=== PATIENT | male | born 1945 | race Caucasian/White ===

== ENCOUNTER 2019-10-03 08:19 | Outpatient (CLI) | payer MEDICARE, SELFPAY ==
--- NOTE | ~2019-10-03 | CT_ITS ---
EXAMINATION: CT abdomen pelvis w con DATE: 10/03/2019 09:06 INDICATION: Left lower quadrant abdominal pain TECHNIQUE: Computed tomography (CT) of the abdomen and pelvis was performed with 100 cc Omnipaque 350 intravenous contrast. Automated exposure control and iterative reconstruction technique were employe d. Exam dose: 1413.28 mGy-cm total exam DLP. COMPARISON: None. FINDINGS: There is mild dependent atelectasis at the lingula and lower lobes. Normal heart size. No pericardial or pleural effusion. Small sliding hiatal hernia The liver, gallbladder, bile ducts, spleen, pancreas, pancreatic duct and adrenal glands and kidneys are unremarkable. No urinary tract calculus or hydroureteronephrosis. There is calcification of the abdominal aorta particularly at the origins of the celiac and superior mesenteric and renal arteries. No abdominal aortic aneurysm. No intraperitoneal or retroperitoneal or pelvic mass lesion or adenopathy or ascites is detected. The urinary bladder is unremarkable. Normal appendix. There is minimal diverticulosis of the colon; no CT evidence of diverticulitis. No b owel obstruction or bowel wall thickening, pneumatosis or intraperitoneal free air. There is a fat-containing umbilical hernia. There are additional right parasagittal small fat-contain ing supraumbilical ventral abdominal wall hernias. There are moderate bilateral fat-containing inguinal hernias. There is osteopenia. There are degenerative changes of the thoracic and lumbar spine. No suspicious o steolytic or osteoblastic lesions are noted. IMPRESSION: Small sliding hiatal hernia Minimal diverticulosis of the colon; no CT evidence of diverticulitis Reviewed, dictated and finalized at [facility]. Reviewed, dictated and finalized at location B.
[2019-10-03 08:59] LABS: Estimated Glomerular Filt Rate > 60
== END 2019-10-03 08:20 | disposition home or self-care (01) ==
PROVIDERS: PCP Internal Medicine; Visit Provider Internal Medicine
DX: K44.9 Diaphragmatic hernia without obstruction or gangrene (principal); K57.30 Diverticulosis of large intestine without perforation or abscess without bleeding
CPT/HCPCS: 36415; 74177; Q9967

== ENCOUNTER 2020-06-25 06:23 | Inpatient (IN) | payer MEDICARE, SELFPAY ==
[2020-06-25] VITALS (59 sets, daily range): BP systolic 99–216; BP diastolic 56–92; PULSE 77–130; RESP 17–46; TEMP 36–37.3; O2SAT 56–100; BMI 34.2
--- NOTE | ~2020-06-25 | XR_ITS ---
EXAMINATION: XR chest 1V portable DATE: 06/26/2020 06:06 INDICATION: Respiratory failure TECHNIQUE: frontal view of the chest was obtained. COMPARISON: Chest radiograph dated 06/25/2020 FINDINGS: Endotracheal tube tip 10.0 cm above the john. Nasogastric tube extends below the left hemidiaphrag m with distal tip collimated off the study. No significant interval change in patchy airspace opacities in the bilateral mid and lower lung zones . No pleural effusion or pneumothorax. The cardiomediastinal silhouette is normal. IMPRESSION: 1. Endotracheal tube tip 10.0 cm above the john. Consider advancement by 7-8 cm. 2. Unchanged patchy bilateral lung disease which could represent pneumonia and/or pulmonary edema. Reviewed, dictated and finalized at location A. ECTRIC MACHINE OPERATOR IMPRESSION: 1. Endotracheal tube tip 10.0 cm above the john. Consider advancement by 7-8 cm. 2. Unchanged patchy bilateral lung disease which could represent pneumonia and/ or pulmonary edema.
--- NOTE | ~2020-06-25 | XR_ITS ---
EXAMINATION: XR chest ET placement DATE: 06/26/2020 09:51 INDICATION: Intubation. COVID-19 pneumonia. TECHNIQUE: A single frontal view of the chest was obtained. COMPARISON: Chest single view at 5:44 AM, chest CT 06/25/2020 FINDINGS: There are airspace opacities in the mid and lower lung zones. The lateral costophrenic angl es are excluded. No pleural effusion or pneumothorax. The heart size is normal. The endotracheal tube tip is 5.9 cm above the john. The nasogastric tube tip is beyond the inferior margin of the radiog raph, but at least to the stomach. IMPRESSION: 1. Stable airspace opacities in the mid and lower lung zones, consistent with pneumonia versus pulmon pepito edema. Reviewed, dictated and finalized at location B. TER GEOPHYSICAL IMPRESSION: 1. Stable airspace opacities in the mid and lower lung zones, consistent with p neumonia versus pulmonary edema.
--- NOTE | ~2020-06-25 | XR_ITS ---
EXAMINATION: XR chest-chest tube insert/pos DATE: 07/01/2020 12:53 INDICATION: Chest tube placement TECHNIQUE: frontal view of the chest was obtained. COMPARISON: Chest radiograph dated 07/01/2020 at 11:48 AM FINDINGS: Endotracheal tube tip 5.4 cm above the john. Nasogastric tube extends below the left hemidiaphragm with distal tip collimated off the study. Right upper extremity peripherally inserted central venous catheter (PICC) tip at the mid superior vena cava. Interval placement of bilateral chest tubes. The right chest tube extends from lateral to medial acro ss the right lung base with distal tip projecting over the thoracic spine just beyond the midline. Th e left chest tube also enters laterally near the costophrenic angle but extends superomedially with d istal tip projecting over the left infrahilar region. Both the left and right pneumothoraces have res olved. No pleural effusion. There are patchy airspace opacities in the right mid to lower and left lo wer lung zones. Heart size is normal. Pneumomediastinum and extensive subcutaneous emphysema at the b ilateral chest and neck. IMPRESSION: 1. Bilateral chest tube placement with resolution of prior bilateral pneumothoraces and reexpansion o f the lungs. 2. Patchy airspace opacities in the right mid and lower and left lower lung zones concerning for pneu monia. 3. Residual pneumomediastinum and extensive subcutaneous emphysema. Reviewed, dictated and finalized at location A. CTION MOLDING TECHNICIAN IMPRESSION: 1. Bilateral chest tube placement with resolution of prior bilateral pneumothor aces and reexpansion of the lungs. 2. Patchy airspace opacities in the right mid and lower and left lower lung zon es concerning for pneumonia. 3. Residual pneumomediastinum and extensive subcutaneous emphysema.
--- NOTE | ~2020-06-25 | XR_ITS ---
EXAMINATION: XR chest-chest tube insert/pos DATE: 07/01/2020 12:04 INDICATION: Chest tube placement TECHNIQUE: frontal view of the chest was obtained. COMPARISON: Chest radiograph dated 07/01/2020 FINDINGS: Endotracheal tube tip 5.7 cm above the john. Nasogastric tube extends below the left hemidiaphragm with distal tip collimated off the study. Interval attempted placement of a right chest tube which a ppears to extend cephalad into the right side of the neck remaining extrapleural. No significant change in a moderate sized right pneumothorax with depression of the right hemidiaphra gm and partial collapse of the right lung. Small left pneumothorax evident at the apex and at the lat eral left lower lung zone. Patchy airspace opacities at the left lower lung zone and in the collapsed right lung consistent with multifocal pneumonia. Heart size is normal and lung with the mediastinum remains midline. Pneumomediastinum and extensive chest wall emphysema extending into the base of the neck. IMPRESSION: 1. Right chest tube remains extrapleural extending into the base of the right neck. 2. Unchanged moderate-sized right and small left pneumothoraces. This and the extrapleural position o f the right chest tube were discussed with Dr. Lam at 12:05 p.m. 3. Persistent patchy airspace opacities in both lungs consistent with multifocal pneumonia. Reviewed, dictated and finalized at location A. UCTION STAFF WORKER IMPRESSION: 1. Right chest tube remains extrapleural extending into the base of the right n deshaun. 2. Unchanged moderate-sized right and small left pneumothoraces. This and the e xtrapleural position of the right chest tube were discussed with Dr. Lam at 1 2:05 p.m. 3. Persistent patchy airspace opacities in both lungs consistent with multifoca l pneumonia.
--- NOTE | ~2020-06-25 | XR_ITS ---
EXAMINATION: XR chest 1V portable INDICATION: Assess chest tube placement TECHNIQUE: Portable AP chest at 2102 hours COMPARISON: 1243 hours FINDINGS: The endotracheal tube ends approximately 5.1 cm above the john. The nasogastric tube is f ollowed as far as the stomach. Its tip is beyond the inferior margin of the radiograph. A right upper extremity PICC ends with its tip in the distal superior vena cava. Bilateral chest tubes are grossly unchanged in position. No definite persistent pneumothorax is identified. Again noted is widespread subcutaneous emphysema as well as pneumomediastinum. IMPRESSION: 1. No significant change since the most recent chest radiograph. Reviewed, dictated and finalized at location A. TRIC REPAIR SUPERVISOR
--- NOTE | ~2020-06-25 | CT_ITS ---
EXAMINATION: CT brain wo con DATE: 06/25/2020 09:15 INDICATION: Altered mental status. Respiratory distress. TECHNIQUE: Computed tomography (CT) of the head was performed without intravenous contrast. Sagittal and coronal reconstructions were performed. The mA was adjusted according to patient size. Iterative reconstruction technique was employed. The dose-length product was 681.00 mGy-cm. COMPARISON: head CT dated 08/02/2018 FINDINGS: No acute intracranial hemorrhage, acute infarction or abnormal extra axial fluid collection. Ventricl es are normal and symmetric. No mass/mass effect. Chronic left parietal bro hole. Changes of bilater al intraocular lens replacement. Mild mucosal thickening the bilateral ethmoid sinuses. Moderate muco eriberto thickening in the bilateral maxillary sinuses with layering fluid nearly opacifying the right max illary sinus. Mastoid air cells and middle ear cavities are clear. Intracranial calcified cerebral at herosclerosis is noted. IMPRESSION: 1. Normal brain. No acute intracranial process. 2. Layering fluid in the right maxillary sinus. Correlate clinically for acute sinusitis. Reviewed, dictated and finalized at location A. ER
--- NOTE | ~2020-06-25 | XR_ITS ---
EXAMINATION: XR chest 1V portable INDICATION: Advanced endotracheal tube TECHNIQUE: Portable AP chest at 1726 hours COMPARISON: 1653 hours FINDINGS: The endotracheal tube is minimally advanced now positioned 9.9 cm above the john. Diffuse lung disease persists without significant change. The nasogastric tube is followed as far as the sto mach. Its tip is beyond the inferior margin of the radiograph. IMPRESSION: 1. Minimal advancement of the endotracheal tube now ending with its tip 9.9 cm above the john. 2. Stable diffuse lung disease, consistent with pneumonia versus pulmonary edema. Reviewed, dictated and finalized at location A. SAFETY MANAGER IMPRESSION: 1. Minimal advancement of the endotracheal tube now ending with its tip 9.9 cm above the john. 2. Stable diffuse lung disease, consistent with pneumonia versus pulmonary alan a.
--- NOTE | ~2020-06-25 | CT_ITS ---
EXAMINATION: CT chest wo con DATE: 07/01/2020 15:57 INDICATION: Pneumothorax, shortness of breath TECHNIQUE: Computed tomography (CT) of the chest was performed without intravenous contrast. The dose -length product (DLP) was 1004.55 mGy-cm. Automated exposure control and iterative reconstruction sharita hnique were employed. COMPARISON: CT 06/25/2020 and chest radiographs from today FINDINGS: There are small bilateral pneumothoraces. Bilateral chest tubes have been placed. The left- sided chest tube appears to course through the lung parenchyma of the lingula. The right-sided chest tube courses along the anterior/inferior pleural space and with its tip medially. The previously desc ribed areas of crazy paving in all lung zones persist but have improved since the comparison examin ation. There is an ovoid/cylindrical shaped, apparently loculated fluid collection with air-fluid lev el involving much of the medial portion of the left pleural space. This appears to contain mildly hyp erdense fluid however evaluation is limited by the absence of intravenous contrast and streak artifac t from the arms. A right upper extremity PICC ends in the distal superior vena cava. The nasogastric tube is in the stomach. The endotracheal tube is in adequate position. The heart size is normal. Subt le sclerotic lesions are noted in the sternum. There is extensive subcutaneous emphysema throughout the thorax, worst in the right neck and left upp er chest wall. There is also extensive pneumomediastinum tracking into the bilateral ban. Extensive subcutaneous emphysema is present in the flanks as well as in the peritoneum of the upper abdomen. IMPRESSION: 1. Diffuse lung disease with improvement, consistent with pneumonia and/or pulmonary edema. 2. Small bilateral pneumothoraces with bilateral chest tubes. The left chest tube appears to traverse the lung parenchyma of the lingula. 3. Severe widespread subcutaneous emphysema of the thorax and visualized phalanx, pneumomediastinum, and pneumoperitoneum of unclear etiology given that the findings were present on chest radiograph rob or to chest tube insertion. 4. Loculated fluid collection of the medial left pleural space with possible mildly hyperdense internet sales associate al component, further evaluation limited by the absence of intravenous contrast and streak artifact. Five. Subtle sclerotic lesions of the sternum which could reflect metastatic disease given history of prostate cancer. Reviewed, dictated and finalized at location A. CREAM FREEZER ASSISTANT IMPRESSION: 1. Diffuse lung disease with improvement, consistent with pneumonia and/or pulm onary edema. 2. Small bilateral pneumothoraces with bilateral chest tubes. The left chest tu be appears to traverse the lung parenchyma of the lingula. 3. Severe widespread subcutaneous emphysema of the thorax and visualized phalan x, pneumomediastinum, and pneumoperitoneum of unclear etiology given that the f indings were present on chest radiograph prior to chest tube insertion. 4. Loculated fluid collection of the medial left pleural space with possible mi ldly hyperdense internal component, further evaluation limited by the absence o f intravenous contrast and streak artifact. Five. Subtle sclerotic lesions of t he sternum which could reflect metastatic disease given history of prostate can cer.
--- NOTE | ~2020-06-25 | XR_ITS ---
EXAMINATION: XR chest 1V portable DATE: 06/27/2020 06:23 INDICATION: Respiratory failure TECHNIQUE: frontal view of the chest was obtained. COMPARISON: Chest radiograph dated 06/26/2020 at 12:23 PM FINDINGS: Endotracheal tube tip 5.3 cm above the john. Right upper extremity peripherally inserted central ve nous catheter (PICC) tip at the superior vena cava. Nasogastric tube extends below the left hemidia phragm with distal tip collimated off the study. Increase in hazy airspace opacities throughout both lungs with increased indistinct interstitial isaiah slade. No pleural effusion or pneumothorax. Heart size is normal. IMPRESSION: 1. Worsening diffuse bilateral lung disease consistent with pulmonary edema and/or pneumonia Reviewed, dictated and finalized at location A. E FEEDER IMPRESSION: 1. Worsening diffuse bilateral lung disease consistent with pulmonary edema and /or pneumonia
--- NOTE | ~2020-06-25 | CT_ITS ---
EXAMINATION: CTA chest PE abdomen pel DATE: 06/25/2020 09:15 INDICATION: Respiratory distress. Altered mental status. TECHNIQUE: Computed tomography angiography (CTA) of the chest was performed with 100 mL Omnipaque-350 intravenous contrast timed to evaluate the pulmonary arteries. Coronal maximum intensity projection 3D-reconstructions were created by the technologist. Computed tomography (CT) of the abdomen and pelv is was performed with intravenous contrast. Automated exposure control and iterative reconstruction t echnique were employed. The dose-length product was 2444.25 mGy-cm. COMPARISON: CT abdomen and pelvis 10/03/2019 FINDINGS: CTA chest: There are extensive areas of crazy paving in all lobes. There are dependent airspace opaci ties with air bronchograms in the lower lobes. No pleural effusion. The heart size is normal. There a re coronary artery calcifications. No pericardial effusion. There are acute pulmonary emboli in right upper lobe, right middle lobe, right lower lobe, and lingula. The endotracheal tube tip is 9.2 cm ab ove the john. The nasogastric tube tip is in the stomach. There are bridging endplate osteophytes a t multiple levels in the spine, consistent with diffuse idiopathic skeletal hyperostosis (DISH). Ther e is mild chronic anterior wedging of multiple thoracic vertebral bodies. There is moderate thoracic spondylosis. CT abdomen and pelvis: The liver, gallbladder, spleen, pancreas, adrenal glands, and right kidneys ar e normal. There are bilateral inguinal hernias containing fat. There are no dilated loops of bowel. T he appendix is normal. There are umbilical and supraumbilical ventral hernias containing fat. There a re no pathologically enlarged lymph nodes. There is no free intraperitoneal fluid. There is moderate lumbar spondylosis. IMPRESSION: 1. Bilateral acute pulmonary emboli. I called this result to Dr. Farfan. 2. Severe diffuse lung disease, consistent with pneumonia versus pulmonary edema. 3. Endotracheal tube tip 9.2 cm above the john. Reviewed, dictated and finalized at location B. MASTER IMPRESSION: 1. Bilateral acute pulmonary emboli. I called this result to Dr. Farfan. 2. Severe diffuse lung disease, consistent with pneumonia versus pulmonary alan a. 3. Endotracheal tube tip 9.2 cm above the john.
--- NOTE | ~2020-06-25 | XR_ITS ---
EXAMINATION: XR chest 1V portable DATE: 07/02/2020 05:57 INDICATION: Respiratory failure. COVID-19 pneumonia. TECHNIQUE: A single frontal view of the chest was obtained. COMPARISON: Chest single view 07/01/2020, chest CT 07/01/2020 FINDINGS: There are airspace opacities in the lower lung zones, left worse than right. There is a sma ll left pleural effusion. No pneumothorax. Bilateral chest tubes are noted. The heart size is normal. The endotracheal tube tip is 4.9 cm above the john. A right upper extremity peripherally inserted central venous catheter (PICC) is seen with tip in the superior vena cava. The nasogastric tube tip i s beyond the inferior margin of the radiograph, but at least to the stomach. There is soft tissue gas in the bilateral chest wall and neck. IMPRESSION: 1. Worsened airspace opacities in the lower lung zones, consistent with pneumonia and atelectasis. 2. Worsened small left pleural effusion. Reviewed, dictated and finalized at location A. WARE TEST SPECIALIST IMPRESSION: 1. Worsened airspace opacities in the lower lung zones, consistent with pneumon ia and atelectasis. 2. Worsened small left pleural effusion.
--- NOTE | ~2020-06-25 | XR_ITS ---
EXAMINATION: XR chest ET placement DATE: 07/01/2020 12:00 INDICATION: Endotracheal tube placement TECHNIQUE: frontal view of the chest was obtained. COMPARISON: Chest radiograph dated 07/01/2020 FINDINGS: Endotracheal tube tip 6.5 cm above the john. Nasogastric tube extends below the left hemidiaphragm with distal tip collimated off the study. Moderate-sized right pneumothorax with partial collapse of the right lung. There is also a small left pneumothorax best appreciated at the medial and lateral lower lung zones. There is a deep right sulc us sign which can be seen with tension pneumothorax although there is no appreciable leftward shift o f the heart or mediastinum with the trachea remaining midline. Patchy airspace opacities in the left lower lung zone and in the partially collapsed right lung consistent with pneumonia. Pneumomediastinu m. Bilateral chest wall emphysema, left greater than right. Heart size is normal. IMPRESSION: 1. Bilateral pneumothoraces, moderate sized on the right with partial collapse of the right lung and small on the left. Could not exclude developing right tension pneumothorax. 2. Multifocal pneumonia. 3. Pneumomediastinum and extensive chest wall emphysema. Reviewed, dictated and finalized at location A. RSE ENGINEER IMPRESSION: 1. Bilateral pneumothoraces, moderate sized on the right with partial collapse of the right lung and small on the left. Could not exclude developing right ten myles pneumothorax. 2. Multifocal pneumonia. 3. Pneumomediastinum and extensive chest wall emphysema.
--- NOTE | ~2020-06-25 | XR_ITS ---
EXAMINATION: XR chest 1V portable DATE: 06/28/2020 07:06 INDICATION: Respiratory failure. COVID-19 pneumonia. TECHNIQUE: A single frontal view of the chest was obtained. COMPARISON: Chest single view 06/27/2020, chest CT 06/25/2020 FINDINGS: There are airspace and interstitial opacities in all lung zones bilaterally with relative s paring of left upper lung zone. No pleural effusion or pneumothorax. The heart size is normal. The en dotracheal tube tip is 5.6 cm above the john. The nasogastric tube tip is beyond the inferior nabila n of the radiograph, but at least to the stomach. A right upper extremity peripherally inserted centr al venous catheter (PICC) is seen with tip at the superior cavoatrial junction. IMPRESSION: 1. Stable diffuse lung disease, consistent with pulmonary edema versus pneumonia. Reviewed, dictated and finalized at location B. ITAL LABORATORY TECHNICIAN IMPRESSION: 1. Stable diffuse lung disease, consistent with pulmonary edema versus pneumoni a.
--- NOTE | ~2020-06-25 | XR_ITS ---
EXAMINATION: XR chest 1V portable DATE: 06/30/2020 07:02 INDICATION: Respiratory failure TECHNIQUE: frontal view of the chest was obtained. COMPARISON: Chest radiograph dated 06/29/2020 FINDINGS: Endotracheal tube tip 5.8 cm above the john. Nasogastric tube extends below the left hemidiaphragm with distal tip collimated off the study. Right upper extremity peripherally inserted central venous catheter (PICC) tip at the superior vena cava. Significant improvement in the airspace opacities previously diffuse throughout both lungs are now re latively mild at the left lung base and minimal at the right lung base. There is still a slightly inc reased diffuse interstitial pattern consistent with mild pulmonary edema. The cardiomediastinal silho uette is normal. IMPRESSION: 1. Improvement in bilateral opacities which given the relatively rapid change could've been due to pu lmonary edema or small posteriorly layering pleural effusions. 2. Mild residual pulmonary edema and mild bibasilar opacities which could represent atelectasis or pn eumonia. Reviewed, dictated and finalized at location A. PULLER IMPRESSION: 1. Improvement in bilateral opacities which given the relatively rapid change c ould've been due to pulmonary edema or small posteriorly layering pleural effus ions. 2. Mild residual pulmonary edema and mild bibasilar opacities which could repre sent atelectasis or pneumonia.
--- NOTE | ~2020-06-25 | XR_ITS ---
EXAMINATION: XR chest ET placement DATE: 06/25/2020 07:07 INDICATION: Endotracheal tube placement TECHNIQUE: frontal view of the chest was obtained. COMPARISON: Chest radiograph dated 02/25/2017 FINDINGS: Endotracheal tube tip 7.6 cm above the john. Nasogastric tube extends to at least the distal esoph alisha with the region of the gastroesophageal junction collimated off the study. Prominent bilateral patchy airspace opacities throughout the mid and lower lung zones. No pneumothora x or definitive pleural effusion. Heart size appears enlarged however was normal in size on most rece nt CT dated 10/03/2019 and this may be exaggerated by AP technique and surrounding lung disease. IMPRESSION: 1. Endotracheal tube tip 7.6 cm above the john. Consider advancement by 4-5 cm. 2. Diffuse bilateral lung disease which could represent severe pulmonary edema and/or pneumonia. 3. Possible cardiomegaly. Reviewed, dictated and finalized at location A. TH PROMOTION OFFICER IMPRESSION: 1. Endotracheal tube tip 7.6 cm above the john. Consider advancement by 4-5 c m. 2. Diffuse bilateral lung disease which could represent severe pulmonary edema and/or pneumonia. 3. Possible cardiomegaly.
--- NOTE | ~2020-06-25 | US_ITS ---
EXAMINATION: US venous doppler [facility] DATE: 06/25/2020 14:25 INDICATION: Pulmonary embolism TECHNIQUE: Grayscale ultrasound images without and with compression and Doppler ultrasound images of the bilateral lower extremity veins were obtained. COMPARISON: None. FINDINGS: Noncompressible deep venous thrombosis in the right gastrocnemius vein, soleal vein and in both the p aired posterior tibial veins at the right calf. The visualized portions of right common femoral vein, profunda (deep) femoral vein, femoral vein, popliteal vein, peroneal veins and greater saphenous vei n outflow are patent. The visualized portions of left common femoral vein, profunda femoral vein, femoral vein, popliteal v ein, posterior tibial veins, peroneal veins, gastrocnemius vein and greater saphenous vein outflow ar e patent. IMPRESSION: 1. Deep venous thrombosis below the right knee in the gastrocnemius, soleus and paired posterior tib ial veins. 2. No deep venous thrombosis in the left lower limb. Reviewed, dictated and finalized at location A. AULICS ENGINEER IMPRESSION: 1. Deep venous thrombosis below the right knee in the gastrocnemius, soleus an d paired posterior tibial veins. 2. No deep venous thrombosis in the left lower limb.
--- NOTE | ~2020-06-25 | XR_ITS ---
EXAMINATION: XR abdomen NG/feed tube insert DATE: 06/28/2020 11:01 INDICATION: Orogastric tube placement. TECHNIQUE: A semierect view of the abdomen was obtained. COMPARISON: Abdomen radiographs 06/27/2020 FINDINGS: The lower abdomen and right lateral aspect of the abdomen are excluded. There are no visibl e dilated loops of bowel. The nasogastric tube tip is in the stomach. The endotracheal tube tip is 5. 9 cm above the john. A right upper extremity peripherally inserted central venous catheter (PICC) i s seen with tip in the superior vena cava. There are airspace opacities in left mid and lower lung zo nika. IMPRESSION: 1. Nasogastric tube tip in the stomach. 2. Stable airspace opacities in left mid and lower lung zones, consistent with pulmonary edema versus pneumonia. Reviewed, dictated and finalized at location B. E STEAMER
--- NOTE | ~2020-06-25 | XR_ITS ---
EXAMINATION: XR chest 1V portable INDICATION: Endotracheal tube position assessment TECHNIQUE: Portable AP chest at 1653 hours COMPARISON: 0704 hours FINDINGS: The tip of the endotracheal tube is above the thoracic inlet approximately 12 cm above the john. Diffuse lung disease persists with slight improvement. No pleural effusion or pneumothorax is identified. The nasogastric tube is followed as far as the stomach. Its tip is beyond the inferior m argin of the radiograph. IMPRESSION: 1. Tip of the endotracheal tube above the thoracic inlet approximately 12 cm above the john. Reposi tioning is recommended. 2. Diffuse lung disease with slight improvement, consistent with pneumonia versus pulmonary edema. Reviewed, dictated and finalized at location A. PING POINT INSPECTOR IMPRESSION: 1. Tip of the endotracheal tube above the thoracic inlet approximately 12 cm ab ove the john. Repositioning is recommended. 2. Diffuse lung disease with slight improvement, consistent with pneumonia vers us pulmonary edema.
--- NOTE | ~2020-06-25 | XR_ITS ---
EXAMINATION: XR chest 1V portable DATE: 07/01/2020 06:00 INDICATION: Respiratory failure TECHNIQUE: frontal view of the chest was obtained. COMPARISON: Chest radiograph dated 06/30/2020 FINDINGS: Endotracheal tube tip 5.7 cm above the john. Nasogastric tube extends below the left hemidiaphragm with distal tip collimated off the study. Increase in bilateral patchy airspace opacities in the mid and lower lung zones. No pleural effusion or pneumothorax. The cardiomediastinal silhouette is normal. IMPRESSION: 1. Increasing patchy bilateral lung disease which could represent atelectasis and/or pneumonia. Reviewed, dictated and finalized at location A. NING MANAGEMENT IT SPECIALIST IMPRESSION: 1. Increasing patchy bilateral lung disease which could represent atelectasis a nd/or pneumonia.
--- NOTE | ~2020-06-25 | XR_ITS ---
EXAMINATION: XR chest PICC line DATE: 06/26/2020 12:35 INDICATION: Central line placement. TECHNIQUE: A single frontal view of the chest was obtained. COMPARISON: Chest single view at 9:43 AM FINDINGS: There are airspace opacities in all right lung zones and in left mid and lower lung zones. No pleural effusion or pneumothorax. The heart size is normal. The endotracheal tube tip is 6.4 cm ab ove the john. The nasogastric tube tip is beyond the inferior margin of the radiograph, but at leas t to the stomach. A right upper extremity peripherally inserted central venous catheter (PICC) is see n with tip in the superior vena cava. IMPRESSION: 1. PICC tip in superior vena cava. 2. Stable diffuse lung disease, consistent with pneumonia versus pulmonary edema. Reviewed, dictated and finalized at location B. WORKER IMPRESSION: 1. PICC tip in superior vena cava. 2. Stable diffuse lung disease, consistent with pneumonia versus pulmonary alan a.
--- NOTE | ~2020-06-25 | XR_ITS ---
EXAMINATION: XR abdomen NG/feed tube insert DATE: 06/26/2020 09:51 INDICATION: Orogastric tube placement. TECHNIQUE: A supine view of the abdomen was obtained. COMPARISON: CT abdomen and pelvis 06/25/2020 FINDINGS: The lower abdomen is excluded. There are no dilated loops of bowel. The nasogastric tube ti p is in the stomach. IMPRESSION: 1. Nasogastric tube tip in the stomach. Reviewed, dictated and finalized at location B. DRATING PRESS OPERATOR
--- NOTE | ~2020-06-25 | XR_ITS ---
EXAMINATION: XR abdomen NG/feed tube insert DATE: 06/25/2020 08:54 INDICATION: Nasogastric tube placement. TECHNIQUE: A supine view of the abdomen was obtained. COMPARISON: CT abdomen and pelvis 10/03/2019 FINDINGS: There are no dilated loops of bowel. The nasogastric tube tip is in the stomach. IMPRESSION: 1. Nasogastric tube tip in the stomach. Reviewed, dictated and finalized at location B. T WRITER
--- NOTE | ~2020-06-25 | XR_ITS ---
EXAMINATION: XR chest 1V portable, XR abdomen NG/feed tube rechec DATE: 06/27/2020 07:01 INDICATION: Respiratory failure. Recheck feeding tube. TECHNIQUE: 1. Frontal view of the chest was obtained. 2. Semiupright portable AP view of the abdomen was obtained. COMPARISON: Chest radiograph dated 06/27/2020 at 5:24 AM FINDINGS: Endotracheal tube tip 5.4 cm above the john. Nasogastric tube tip in proximal side port in the body of the stomach. Right upper extremity peripherally inserted central venous catheter (PICC) tip near the superior cavoatrial junction. Mild elevation of the left hemidiaphragm. Increased interstitial pattern in the bilateral mid to lowe r lung zones with more patchy airspace opacities at the left lower lung zone. No pleural effusion or pneumothorax. The cardiomediastinal silhouette is normal. No dilated loops of bowel in the visualized upper abdomen. IMPRESSION: 1. Nasogastric tube in the stomach. Endotracheal tube 5.4 cm above the john and could consider adva ncement by 3 cm. 2. Bilateral interstitial opacities with more patchy opacities at the left lung base likely mild pulm onary edema with superimposed left basilar atelectasis and/or pneumonia. Reviewed, dictated and finalized at location [facility]. H AND BROOM CLIPPER IMPRESSION: 1. Nasogastric tube in the stomach. Endotracheal tube 5.4 cm above the john a nd could consider advancement by 3 cm. 2. Bilateral interstitial opacities with more patchy opacities at the left lung base likely mild pulmonary edema with superimposed left basilar atelectasis an d/or pneumonia.
--- NOTE | ~2020-06-25 | XR_ITS ---
EXAMINATION: XR chest 1V portable DATE: 06/29/2020 06:06 INDICATION: Respiratory failure TECHNIQUE: frontal and lateral views of the chest were obtained. COMPARISON: Chest radiograph dated 06/28/2020 FINDINGS: Endotracheal tube tip 4.6 cm above the john. Nasogastric tube extends below the left hemidiaphragm with distal tip collimated off the study. Diffuse bilateral hazy airspace opacities with scattered more dense patchy airspace opacities through out the right lung and in the left mid and lower lung zones. No pneumothorax or definitive pleural ef fusion. Heart size is normal. Rotator cuff calcific tendinitis at the right teres minor tendon. IMPRESSION: 1. Worsening diffuse bilateral lung disease concerning for pneumonia with differential including less likely pulmonary edema or atelectasis. Reviewed, dictated and finalized at location [facility]. K SPECIAL EDUCATION TEACHER IMPRESSION: 1. Worsening diffuse bilateral lung disease concerning for pneumonia with diffe rential including less likely pulmonary edema or atelectasis.
--- NOTE | 2020-06-25 06:30 | PC.NURSE ---
Patient on non rebreather, respiratory in room. VORB for meds to be given per ERP 20mg etomidate, 100mg of succs. Meds were given, IV infiltrated. Patient assisted with respirations via bagging by respiratory. 0635 meds attemped to be given via other IV, IV infiltrated. Patient still assisted with ventilations via bagging. 0640 Patient waking up, disoriented. Patient did state he had some diarrhea for the past few days.Patient oxygen saturation at 80% being bagged, 122bpm. 0644 after successful IV via US, vorb per Dr. Yung 50mg felipe, 4mg versed IVP. 0646 patient intubated by ERP with size 8 tube and secured at 23 at the lip. Positive color change and visual chest rise and fall. 0655 NG placed in left nare and secured at 63 at the lip. Xray obtained. 0657 Another successful IV placed, 20g in right hand. 0706 patient's daughter arrives in room and states patient has a granddaughter that has been exposed to covid.
--- NOTE | 2020-06-25 06:51 | ECG_ITS ---
Measurements Intervals [place] Rate: 130 P: [place]: 0 QRS: -4 QRSD: 105 T: 9 QT: 299 QTc: 440 Interpretive Statements SINUS OR ECTOPIC ATRIAL TACHYCARDIA ATRIAL PREMATURE COMPLEX BORDERLINE ST-T WAVE ABNORMALITY- INF/LAT LEADS ABNORMAL ECG Electronically Signed On 06-25-2020 7:14:53 COMMERCIAL LINES ASSISTANT by Refugio Hamilton D.O.
--- NOTE | 2020-06-25 06:53 | ED.AMS ---
HPI - Altered Mental Status General Chief Complaint: Altered Mental Status <Elliot Yung MD - Last Filed: 06/25/20 07:34> Stated Complaint: AMS <Elliot Yung MD - Last Filed: 06/25/20 07:34> Time Seen by Provider: 06/25/20 06:51 <Elliot Yung MD - Last Filed: 06/25/20 07:34> History of Present Illness HPI narrative: Brought in by EMS from home for respiratory distress. Family reportedly noted shallow breathing over night. Found him unresponsive overnight. On arrival here he is minimally responsive with Oxygen saturation of 12. History limited by medical condition and mental status. <Elliot Yung MD - Last Filed: 06/25/20 07:34> Related Data Home Medications: Home Medications Medication Instructions Recorded Confirmed acetaminophen 500 mg tablet 500 mg PO Q6H PRN 09/20/19 02/28/20 esomeprazole magnesium 40 mg 40 mg PO DAILY 09/20/19 03/28/20 capsule,delayed release fluticasone propionate 50 2 spray NASAL DAILY 09/20/19 03/28/20 mcg/actuation nasal spray,suspension yysnpiwq-clv-mggct acid 300 1 tablet PO DAILY 09/20/19 03/28/20 mcg-lycopene 600 mcg-lutein 300 mcg tablet mecobalamin (vitamin B12) 1,000 1,000 mcg PO DAILY 02/20/20 03/28/20 mcg chewable tablet loratadine 10 mg tablet 10 mg PO DAILY 03/28/20 03/28/20 naproxen sodium 220 mg tablet 220 mg PO BID PRN 03/28/20 03/28/20 <Elliot Yung MD - Last Filed: 06/25/20 07:34> Allergies/Adverse Reactions: Allergies Allergy/AdvReac Type Severity Reaction Status Date / Time cephalexin Allergy Mild Hives Verified 02/20/20 15:06 <Elliot Yung MD - Last Filed: 06/25/20 07:34> Review of Systems Review of Systems: ROS unobtainable: Yes unobtainable due to endotracheal tube, unobtainable due to medical condition and unobtainable due to mental status <Elliot Yung MD - Last Filed: 06/25/20 07:34> PMFSH Past Medical History Medical History: Medical History (Updated 06/25/20 @ 11:04 by Tin Farfan MD) Prostate cancer <Elliot Yung MD - Last Filed: 06/25/20 07:34> Family History Family History: Family History Mother Family history of chronic obstructive pulmonary disease Patient's mother is Father Family history of chronic obstructive pulmonary disease <Elliot Yung MD - Last Filed: 06/25/20 07:34> Social History Social History: Social History Smoking status: Never smoker Second hand tobacco smoke exposure: No Alcohol intake: never Substance use: never <Elliot Yung MD - Last Filed: 06/25/20 07:34> Exam Const: Other: Severe distress <Elliot Yung MD - Last Filed: 06/25/20 07:34> HENMT: Mouth: Yes dry mucous membranes <Elliot Yung MD - Last Filed: 06/25/20 07:34> Eyes: Pupils: Equal, round and reactive pupils present <Elliot Yung MD - Last Filed: 06/25/20 07:34> Resp: Effort & Inspection: labored and tachypneic <Elliot Yung MD - Last Filed: 06/25/20 07:34> Auscultation: clear to auscultation bilaterally <Elliot Yung MD - Last Filed: 06/25/20 07:34> Cardio: Rate: tachycardic <Elliot Yung MD - Last Filed: 06/25/20 07:34> Rhythm: regular rhythm <Elliot Yung MD - Last Filed: 06/25/20 07:34> GI: GI Palp: Yes Soft to palpation and Yes Tenderness to palpation present (GI) <Elliot Yung MD - Last Filed: 06/25/20 07:34> Skin: General skin exam: pallor <Elliot Yung MD - Last Filed: 06/25/20 07:34> Other: mottled <Elliot Yung MD - Last Filed: 06/25/20 07:34> Neuro: Speech: Abnormal speech present garbled (sparse) <Elliot Yung MD - Last Filed: 06/25/20 07:34> Extrem: General: no edema <Elliot Yung MD - Last Filed: 06/25/20 07:34> Course Vital Signs Vital signs: Vital S
[2020-06-25 06:55] LABS: Alveolar/Arterial O2 Gradient 646.5 mmHg; Fractional Inspired Oxygen 100 %; HCO3 ABG 18.7 mEq/l (22.0-26.0); Oxygen Content ABG 10.1 %vol (16.0-22.0); Oxyhemoglobin 44.6 % THb (90.0-100.0); PCO2 ABG 38.4 mmHg (35.0-45.0); PO2 FiO2 Ratio Arterial Blood 0.28 %; Total Hemoglobin 16.2 g/dL (12.0-18.0); pH ABG 7.305 (7.350-7.450)
[2020-06-25 06:57] LABS: Device AMBU BAG; Modified Allen's Test Pass; Oxygen Saturation ABG 47.4 % (95.0-100.0); PO2 ABG 28.1 mmHg (80.0-100.0); Site Drawn RIGHT RADIAL
[2020-06-25] MEDS: SODIUM CHLORIDE 0.9% IV 1,000 ML 999 ML IV CONT (07:00)
[2020-06-25 07:11] LABS: Basophils Absolute Auto 0.1 K/mm3 (0.0-0.1); Basophils Percent Auto 0.2 % (0.2-1.2); Hematocrit 46.8 % (42.0-52.0); Immature Granulocyte Absolute 0.44 K/mm3 (0.00-0.031); Immature Granulocyte Percent A 1.5 % (0-0.5); Lymphocytes Absolute Auto 0.96 K/mm3 (0.9-3.2); Lymphocytes Percent Auto 3.4 % (18.3-44.2); Mean Corpuscular HGB Conc 34.2 g/dl (32-36); Mean Corpuscular Volume 99.4 fl (80-100); Mean Platelet Volume 9.7 fl (7.4-10.4); Monocytes Absolute Auto 2.1 K/mm3 (0.1-0.6); Monocytes Percent Auto 7.2 % (2.6-8.5); Neutrophils Percent Auto 87.7 % (45.5-73.1); Platelet Count Result 246 k/mm3 (150-375); Red Blood Count 4.71 M/mm3 (4.6-6.20); Red Cell Distribution Width 12.7 % (11.5-14.5); White Blood Count 28.5 K/mm3 (4.5-10.0)
[2020-06-25 07:20] LABS: INR 1.4; Prothrombin Time 17.5 Seconds (11.1-14.7)
--- NOTE | 2020-06-25 07:25 | PC.NURSE ---
ASSUMED CARE OF PT FROM RN CAT AT THIS TIME, PT INTUBATED, ED RESPIRATORY AND ERP ABDULKADIR AT BEDSIDE W/ STAFF ATTEMPTING TO STABALIZE PT, PT O2 SATURATION 84%.
[2020-06-25 07:31] LABS: Lactic Acid Reflex 6.9 mmol/L (0.7-2.1)
[2020-06-25 07:38] LABS: Albumin Level 3.5 g/dL (3.5-5.1); Alkaline Phosphatase 102 U/L (38-126); Anion Gap 14 mmol/L (8-16); Aspartate Amino Transferase 92 U/L (17-59); Bilirubin,Total 1.4 mg/dL (0.2-1.3); Blood Urea Nitrogen 25 mg/dL (9-20); Calcium 8.5 mg/dL (8.4-10.2); Carbon Dioxide 22 mmol/L (22-30); Chloride 100 mmol/L (98-107); Estimated CRCL calculation 93 ml/min; Estimated Glomerular Filt Rate > 60; Glucose 155 mg/dL (75-110); Sodium 136 mmol/L (137-145); Troponin I 0.139 ng/mL (0.000-0.034)
[2020-06-25] MEDS: PROPOFOL IV EMULSION 100 ML 3.49 MG IV CONT (07:55)
--- NOTE | 2020-06-25 08:00 | PC.NURSE ---
1L NS completed at this time per verbal order from DAMARI Yung
[2020-06-25 08:15] LABS: Potassium 3.5 mmol/L (3.4-5.0)
--- NOTE | 2020-06-25 08:16 | PC.NURSE ---
UNABLE TO CONFIRM PT MEDICAL HISTORY BASED ON PT MENTAL STATUS, AND FAMILY UNABLE RECALL.
[2020-06-25 08:21] LABS: Add Urine Microscopic? YES; Appearance Urine Clear (Clear); Bilirubin Urine 1+ (Negative); Blood Urine Negative (Negative); Color Urine Amber (Yellow); Glucose Urine UA Negative (Negative); Ketones Urine Trace mg/dL (Negative); Leukocyte Esterase Ur Negative LEU/UL (Negative); Mucus Urine Moderate /lpf; Nitrate Urine Negative (Negative); Protein Urine 3+ mg/dL (Negative); RBC Urine 0-2 /hpf (0-2); WBC Urine 0-3 /hpf
[2020-06-25 08:23] LABS: Alanine Aminotransferase 68 U/L (4-50)
[2020-06-25 08:25] LABS: Specific Grav Ur 1.035 (1.001-1.035)
[2020-06-25 08:36] LABS: CRP 31.6 mg/dL (<1.0)
[2020-06-25 10:08] LABS: Reflex Lactic Acid Yes or No Add Lactic
[2020-06-25] MEDS: ENOXAPARIN 120 MG/0.8 ML SYRINGE SUB-Q (10:19)
--- NOTE | 2020-06-25 10:36 | PC.NURSE ---
SPOKE WITH DAMARI COTE ABOUT PT BP TRENDING DOWN, VERBAL ORDER FOR 150ML/HR LACTATED RINGERS.
[2020-06-25 10:47] LABS: Lactic Acid 2.5 mmol/L (0.7-2.1)
[2020-06-25] MEDS: LACTATED RINGERS 1,000 ML 150 ML IV CONT ×2 (10:48→23:52)
--- NOTE | 2020-06-25 11:08 | PC.NURSE ---
report to radha greenberg at this time. she has assumed pt care.
[2020-06-25 11:17] LABS: Alveolar/Arterial O2 Gradient 595.1 mmHg; Arterial Blood Gas PEEP 10 cmH2O; Arterial Blood Gas Vent Mode CMV; Arterial Blood Gas Ventilator rate 14 /MIN; Base Excess ABG -3.2 mEq/l (+/-2.0); Carboxyhemoglobin 0.8 % THb (0-2.0); Device VENTILATOR; Fractional Inspired Oxygen 100 %; HCO3 ABG 20.3 mEq/l (22.0-26.0); Methemoglobin ABG 0.3 %THb (0-1.5); Modified Allen's Test Pass; Oxygen Content ABG 20.6 %vol (16.0-22.0); Oxygen Saturation ABG 96.7 % (95.0-100.0); Oxyhemoglobin 95.1 % THb (90.0-100.0); PCO2 ABG 32.6 mmHg (35.0-45.0); PO2 ABG 85.3 mmHg (80.0-100.0); PO2 FiO2 Ratio Arterial Blood 0.85 %; Reduced Hemoglobin 3.8 %THb (0-5.0); Site Drawn LEFT RADIAL; Total Hemoglobin 15.4 g/dL (12.0-18.0); pH ABG 7.413 (7.350-7.450)
[2020-06-25 11:18] LABS: Arterial Blood Gas Tidal Volume 500 ml
--- NOTE | 2020-06-25 12:15 | ADMGEN ---
This patient, Mono Cardozo, was admitted to Intensive Care Unit-6. Patient/family oriented to hospital policies and general routines including ID bracelet, bed and alarms, visiting hours, pain management, procedures, bathroom and other care routines, personal items, smoking policy, room service/diet, and visiting hours. Information on how to activate the Rapid Response Team has been discussed. Patient/Family are encouraged to report perceived risks to care and to ask questions if they do not understand what they are told or what they should do.
--- NOTE | 2020-06-25 13:00 | WPDCNINT ---
Assessment and Plan Assessment and plan (1) Acute hypoxemic respiratory failure: Code(s): J96.01 - Acute respiratory failure with hypoxia Status: Acute Assessment and Plan: Multifactorial -bilateral PE, pneumonia versus COVID-19, congestive heart failure ABG and CT reviewed Bronchodilators (2) Sepsis: Code(s): A41.9 - Sepsis, unspecified organism Status: Acute Assessment and Plan: Secondary to pneumonia versus sinusitis Conservative IV fluids patient received 1 L bolus and is now on 150 mL per are Blood sputum, culture Empiric Levaquin for community-acquired pneumonia (3) Pneumonia: Qualifiers: Laterality: unspecified laterality Lung location: unspecified part of lung Pneumonia type: due to unspecified organism Qualified Code(s): J18.9 - Pneumonia, unspecified organism Code(s): J18.9 - Pneumonia, unspecified organism Status: Acute Assessment and Plan: Continue antibiotics for empiric bacterial coverage Levaquin as patient is allergic to cephalexin Blood and sputum culture Urine Legionella and strep antigen Conservative IV fluids (4) Suspected COVID-19 virus infection: Code(s): Z20.828 - Contact with and (suspected) exposure to other viral communicable diseases Status: Acute Assessment and Plan: SARS-CoV-2 PCR pending Patient is in Airborne, Droplet and Contact Isolation Start empiric dexamethasone Cautious IVF Check inflammatory markers if patient is tested positive (5) Pulmonary embolism: Qualifiers: Acute cor pulmonale presence: without acute cor pulmonale Chronicity: acute Pulmonary embolism type: unspecified Qualified Code(s): I26.99 - Other pulmonary embolism without acute cor pulmonale Code(s): I26.99 - Other pulmonary embolism without acute cor pulmonale Status: Acute Assessment and Plan: Subcutaneous Lovenox mg per kg q.12 hours Check venous Dopplers of lower extremities Check echocardiogram BNP Serial troponins (6) Encephalopathy acute: Code(s): G93.40 - Encephalopathy, unspecified Status: Acute Assessment and Plan: Head CT in ED IMPRESSION: 1. Normal brain. No acute intracranial process. 2. Layering fluid in the right maxillary sinus. Correlate clinically for acute sinusitis. Patient now following commands and moving all 4 extremities. Currently sedated with propofol (7) Hyperglycemia: Code(s): R73.9 - Hyperglycemia, unspecified Status: Acute Assessment and Plan: Sliding scale insulin (8) Sinusitis: Code(s): J32.9 - Chronic sinusitis, unspecified Status: Acute Assessment and Plan: Seen on head CT. Patient currently on Levaquin (9) NSTEMI (non-ST elevated myocardial infarction): Code(s): I21.4 - Non-ST elevation (NSTEMI) myocardial infarction Status: Acute Assessment and Plan: Mild elevation of troponin likely secondary to PE and respiratory failure Serial troponin Check echocardiogram EKG reviewed-nonspecific T-wave changes Aspirin Lovenox Additional Plan DVT prophylaxis -on therapeutic dose Lovenox Stress ulcer prophylaxis -PPI Nutrition -NPO Code Status - Full Code Total Critical Care Time - 35 minutes Due to a high probability of clinically significant, life threatening deterioration, the patient required my highest level of preparedness to intervene emergently and I personally spent this critical care time directly and personally managing the patient. This critical care time included obtaining a history; examining the patient; pulse oximetry; ordering and review of studies; arranging urgent treatment with development of a management plan; evaluation of patient's response to treatment; frequent reassessment; and discussions with other providers. It was exclusive of separately billable procedures and treating other patients and teaching time. Please see Assessment and Plan section and the rest of t
--- NOTE | 2020-06-25 13:03 | ECHO_ITS ---
Patient Info Name: Mono Cardozo Age: 74 years : 1945 Gender: Male Ht: 72 in Wt: 257 lbs BSA: 2.47 m2 HR: 90 bpm BP: 107 / 79 mmHg Heart Rhythm: Sinus Rhythm Technical Quality: Poor Exam Date: 06/25/2020 1:51 PM Exam Location: [facility] Card Pulmonary Patient Status: Inpatient Admit Date: 06/25/2020 Staff Ordering Physician: Destin Lam MD Tube Winder Hand: Ramesh Coker RDCS Attending Provider: Shayy Suazo MD Exam Type: CA echo doppler color flow Study Info Indications I26.99 - Other pulmonary embolism without acute cor pulmonale Complete two-dimensional, color flow and Doppler transthoracic echocardiogram is performed. History/Risk Factors Pulmonary embolism; acute respiratory failure, AMS, pneumonia, COVID PUI. Summary 1. Complete two-dimensional, color flow and Doppler transthoracic echocardiogram is performed. 2. Technically suboptimal study due to poor sonographic images. Definity contrast was not utilized. 3. Left ventricular chamber dimension is normal. 4. Left ventricular systolic function is moderately reduced, estimated at 40-45%. 5. The left ventricular diastolic function is grade I diastolic dysfunction. 6. E/e' 6 is not elevated. 7. No pulmonary hypertension, estimated pulmonary arterial systolic pressure is 32 mmHg. 8. Normal inferior vena cava with <50% collapse upon inspiration consistent with elevated right atrial pressure, 10 mmHg. Left Ventricle Technically suboptimal study due to poor sonographic images. Definity contrast was not utilized. E/e' 6 is not elevated. Left ventricular chamber dimension is normal. Left ventricular systolic function is moderately reduced, estimated at 40-45%. The left ventricular diastolic function is grade I diastolic dysfunction. Right Ventricle Right ventricular chamber dimension is not well visualized. Left Atria Left atrial chamber dimension is normal. Right Atria Right atrial chamber dimension is normal. Aortic Valve The aortic valve is trileaflet. There is no aortic valve stenosis. There is no aortic valve regurgitation. Pulmonic Valve There is no pulmonic regurgitation. Mitral Valve There is no mitral valve stenosis. There is no mitral valve regurgitation. Tricuspid Valve The tricuspid valve leaflets are not well visualized. There is no tricuspid valve regurgitation. No pulmonary hypertension, estimated pulmonary arterial systolic pressure is 32 mmHg. Pericardium/Pleural There is no pericardial effusion. Inferior Vena Cava Normal inferior vena cava with <50% collapse upon inspiration consistent with elevated right atrial pressure, 10 mmHg. Aorta The aortic root size at the sinus of Valsalva is normal. Left Ventricular Outflow Tract Name Value Normal LVOT 2D LVOT Diameter 2.3 cm LVOT Doppler LVOT Peak Gradient 2 mmHg LVOT Mean Gradient 1 mmHg LVOT VTI 10 cm LVOT VTI/AV VTI Ratio 0.8 LVOT Stroke Volume 41 ml LVOT CO
--- NOTE | 2020-06-25 13:36 | PC.NURSE ---
Updated daughter , Huong on plan of care.
[2020-06-25 14:19] LABS: Lactic Acid Reflex 2.5 mmol/L (0.7-2.1)
[2020-06-25 14:29] LABS: NT Pro B Type Natriuretic Pept 2800 PG/ML (5-100)
[2020-06-25 14:34] LABS: Troponin I 0.407 ng/mL (0.000-0.034)
--- NOTE | 2020-06-25 14:41 | PM.IMHP ---
H&P: HPI History of Present Illness Date/Time: 06/25/20 14:41 Chief complaint: acute respiratory failure,pneumonia,pulmonary embo Narrative: Mono Cardozo is a 74 year old male who came into ER via EMS with respiratory distress. The family reported that the patient had some shallow breathing overnight. They found him unresponsive overnight he was minimally responsive they stated that his oxygen saturation was low. Patient CTA was read as bilateral acute pulmonary emboli. Severe diffuse lung disease. ET tube was 9.2 cm above the john. CT of the brain was normal no acute intracranial process. Layering fluid on the right maxillary sinus correlate sinusitis. The NG tube is in the to of the stomach. Second chest x-ray was read as ETT 7.6 cm above the john advanced by 45 cm. Diffuse lung disease. The warp hauler had been notified and has seen the patient. The patient is being swabbed for COVID-19. Patient was started on antibiotics for possible pneumonia. Patient was started on anticoagulation. Patient is being admitted into inpatient status intact to ICU date of service 06/25/2020 Review of Systems Review of Systems: ROS unobtainable: Yes unobtainable due to endotracheal tube Constitutional: Constitutional: Reports as per HPI and Reports no additional constitutional complaints Eyes: Eyes: Reports as per HPI and Reports no additional eye complaints ENT: Reports system reviewed and no additional complaints, except as documented and Reports Normal hearing present Cardiovascular: Cardiovascular: Reports no additional cardiovascular complaints Respiratory: Respiratory: Reports no additional respiratory complaints and Reports no additional respiratory complaints Gastrointestinal: Gastrointestinal: Reports as per HPI and Reports no additional gastrointestinal complaints Musculoskeletal: Musculoskeletal: Reports no additional musculoskeletal complaints Integumentary/Breasts: Skin/Breast: Reports system reviewed and no additional complaints, except as docu and Reports as per HPI Neurologic: Reports system reviewed and no additional complaints, except as documented, Reports as per HPI and Reports Normal hearing present Psychiatric: Psychiatric: Reports no additional psychiatric complaints and Reports as per HPI Endocrine: Endocrine: Reports no additional endocrine complaints Hematologic/Lymphatic: Hematologic/Lymphatic: Reports no additional hematologic/lymphatic complaints Allergic/Immunologic: Allergic/Immunologic: Reports no additional allergic/immunologic complaints [facility] Past Medical History Medical History (Updated 06/25/20 @ 15:42 by Mary Christian NP) BPH (benign prostatic hyperplasia) Essential (primary) hypertension Prostate cancer Surgical History Surgical History (Updated 06/25/20 @ 15:42 by Mary Christian NP) H/O prostatectomy Robotic assisted radical retropubic prostatectomy and bilateral pelvic lymphadenectomy February of 2017 Family History Family History Mother Family history of chronic obstructive pulmonary disease Patient's mother is Father Family history of chronic obstructive pulmonary disease Social History Social History (Updated 06/25/20 @ 15:44 by Mary Christian NP) Social History: The patient is recent medical records showed that he denied any significant ongoing smoking or alcohol. 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 Smoking status: Never smoker Second hand tobacco smoke exposure: No Alcohol intake: never Substance use: never Meds Home Medications and Allergies Home Medications Medication Instructions Recorded Confirmed Type desloratadine 5 mg tablet 5 mg PO DAILY #90 tablet 06/10/19 02/28/20 Rx acetaminophen 500 mg tablet 500 mg PO Q6H PRN 09/20/19 02/28/20 History esomeprazole magnesium 40
[2020-06-25 14:51] LABS: Glucose Point of Care 191 (65-105)
[2020-06-25] MEDS: PROPOFOL IV EMULSION 100 ML 17.46 MG IV CONT ×3 (15:53→23:53)
[2020-06-25 18:47] LABS: Glucose Point of Care 178 (65-105)
[2020-06-25 18:52] LABS: SARS-CoV-2 RNA PCR Positive
[2020-06-25 20:46] LABS: Troponin I 0.212 ng/mL (0.000-0.034)
[2020-06-25] MEDS: ENOXAPARIN 120 MG/0.8 ML SYRINGE 115 MG SUB-Q (21:13)
[2020-06-26] VITALS (28 sets, daily range): BP systolic 104–122; BP diastolic 63–75; PULSE 68–80; RESP 20–29; TEMP 36.3–37.3; O2SAT 89–100; BMI 35.4
[2020-06-26 00:39] LABS: Glucose Point of Care 159 (65-105)
[2020-06-26 04:35] LABS: Alveolar/Arterial O2 Gradient 622.4 mmHg; Base Excess ABG -1.2 mEq/l (+/-2.0); Carboxyhemoglobin 0.3 % THb (0-2.0); Fractional Inspired Oxygen 100 %; HCO3 ABG 21.5 mEq/l (22.0-26.0); Methemoglobin ABG 0.3 %THb (0-1.5); Oxygen Content ABG 18.1 %vol (16.0-22.0); Oxygen Saturation ABG 92.8 % (95.0-100.0); Oxyhemoglobin 90.7 % THb (90.0-100.0); PCO2 ABG 30.5 mmHg (35.0-45.0); PO2 ABG 60.1 mmHg (80.0-100.0); Reduced Hemoglobin 8.7 %THb (0-5.0); Total Hemoglobin 14.2 g/dL (12.0-18.0); pH ABG 7.466 (7.350-7.450)
[2020-06-26 04:38] LABS: Device VENTILATOR; Modified Allen's Test Pass; Site Drawn RIGHT RADIAL
[2020-06-26 04:39] LABS: Arterial Blood Gas PEEP 10 cmH2O; Arterial Blood Gas Tidal Volume 500 ml; Arterial Blood Gas Vent Mode CMV; Arterial Blood Gas Ventilator rate 14 /MIN
[2020-06-26 05:29] LABS: Hematocrit 38.4 % (42.0-52.0); Hemoglobin 13.3 g/dL (14.0-18.0); Mean Corpuscular HGB Conc 34.6 g/dl (32-36); Mean Corpuscular Hemoglobin 33.8 pg (26-34); Mean Corpuscular Volume 97.7 fl (80-100); Mean Platelet Volume 10.3 fl (7.4-10.4); Platelet Count Result 190 k/mm3 (150-375); Red Blood Count 3.93 M/mm3 (4.6-6.20); Red Cell Distribution Width 12.7 % (11.5-14.5); White Blood Count 21.9 K/mm3 (4.5-10.0)
[2020-06-26 05:30] LABS: Alanine Aminotransferase 57 U/L (4-50); Albumin Level 2.7 g/dL (3.5-5.1); Alkaline Phosphatase 75 U/L (38-126); Anion Gap 4 mmol/L (8-16); Aspartate Amino Transferase 57 U/L (17-59); Bilirubin,Total 0.7 mg/dL (0.2-1.3); Blood Urea Nitrogen 30 mg/dL (9-20); Calcium 8.1 mg/dL (8.4-10.2); Carbon Dioxide 28 mmol/L (22-30); Chloride 104 mmol/L (98-107); Estimated CRCL calculation 104 ml/min; Estimated Glomerular Filt Rate > 60; Glucose 136 mg/dL (75-110); Magnesium 2.5 mg/dL (1.6-2.3); Potassium 3.8 mmol/L (3.4-5.0); Sodium 136 mmol/L (137-145); Triglycerides 182 mg/dL (<150)
[2020-06-26] MEDS: LACTATED RINGERS 1,000 ML 150 ML IV CONT (06:32)
[2020-06-26] MEDS: PROPOFOL IV EMULSION 100 ML 3.49 MG IV CONT (07:30)
[2020-06-26] MEDS: ENOXAPARIN 120 MG/0.8 ML SYRINGE 115 MG SUB-Q ×2 (08:29→21:21)
[2020-06-26] MEDS: DEXAMETHASONE 2 MG TABLET 6 MG PO (08:30)
[2020-06-26] MEDS: ASPIRIN 325 MG TABLET PO (08:30)
[2020-06-26 08:50] LABS: Glucose Point of Care 149 (65-105)
--- NOTE | 2020-06-26 10:28 | WPDINTPN ---
Progress Note: A&P Assessment and Plan (1) Acute hypoxemic respiratory failure: Code(s): J96.01 - Acute respiratory failure with hypoxia Status: Acute Assessment and Plan: Multifactorial -bilateral PE, pneumonia versus COVID-19, congestive heart failure ABG and CT reviewed Showed high position ET tube. ET tube was apparently advanced by respiratory therapist but chest x-ray again this morning showed ETT to be at least 10 cm above john. It seemed to me that ETT was curled up in his pharynx. And also was having trouble with his ETT cough which was requiring frequent addition of air to prevent air leak. Patient is a ET tube was exchanged over a tube exchanger today without any complication. Patient did drop oxygenation post id the procedure. Patient was bagged with PEEP valve. Peep had to be increased to 20 Discontinue IV fluids Start Lasix Bronchodilators Will place patient in prone position today once PICC line is placed (2) Sepsis: Code(s): A41.9 - Sepsis, unspecified organism Status: Acute Assessment and Plan: Secondary to pneumonia versus sinusitis Conservative IV fluids patient received 1 L bolus and was on 150 mL per hour IV fluids discontinued this morning due to congestive heart failure and COVID-19 Blood sputum, culture sent and pending Empiric Levaquin for community-acquired pneumonia. Will continue for 5 days (3) Pneumonia: Qualifiers: Laterality: unspecified laterality Lung location: unspecified part of lung Pneumonia type: due to unspecified organism Qualified Code(s): J18.9 - Pneumonia, unspecified organism Code(s): J18.9 - Pneumonia, unspecified organism Status: Acute Assessment and Plan: Continue antibiotics for empiric bacterial coverage Levaquin as patient is allergic to cephalexin. 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 Patient has been feeling sick for few days but he did not get himself checked. She also has not get gotten herself checked and I have encouraged her to get tested and isolate herself. Patient is in Airborne, Droplet and Contact Isolation Continue empiric dexamethasone. Start Remdesivir Check inflammatory markers (5) Pulmonary embolism: Qualifiers: Acute cor pulmonale presence: without acute cor pulmonale Chronicity: acute Pulmonary embolism type: unspecified Qualified Code(s): I26.99 - Other pulmonary embolism without acute cor pulmonale Code(s): I26.99 - Other pulmonary embolism without acute cor pulmonale Status: Acute Assessment and Plan: Subcutaneous Lovenox mg per kg q.12 hours venous Dopplers of lower extremities showed DVT in right leg Echocardiogram reviewed BNP elevated Serial troponins mildly elevated (6) Encephalopathy acute: Code(s): G93.40 - Encephalopathy, unspecified Status: Acute Assessment and Plan: Head CT in ED IMPRESSION: 1. Normal brain. No acute intracranial process. 2. Layering fluid in the right maxillary sinus. Correlate clinically for acute sinusitis. Patient following commands and moving all 4 extremities. Currently sedated with propofol (7) Hyperglycemia: Code(s): R73.9 - Hyperglycemia, unspecified Status: Acute Assessment and Plan: Sliding scale insulin (8) Sinusitis: Code(s): J32.9 - Chronic sinusitis, unspecified Status: Acute Assessment and Plan: Seen on head CT. Patient currently on Levaquin (9) NSTEMI (non-ST elevated myocardial infarction): Code(s): I21.4 - Non-ST elevation (NSTEMI) myocardial infarction
[2020-06-26] MEDS: PANTOPRAZOLE SODIUM IV 40 MG VIAL IV PUSH (10:44)
--- NOTE | 2020-06-26 10:46 | WPDPROCEDUR ---
Procedures Intubation Intubation Date: 06/26/20 Intubation Time: 10:00 Consent: Patient ETT was high despite full advancement by RT. ETT appear to be coiled in his pharynx. Cuff appeared to be to have leak is was requiring frequent air the maintain. ETT was changed emergently A pre-procedural Time-Out was completed immediately before starting the procedure and confirmed: Patient Identification, Site, Procedure, Patient Position and the Availability of Requisite Equipment: Yes Sedative: etomidate Mg given: 20 Paralytic: succinylcholine Mg given: 100 Laryngoscope: Ashley (4) Assist device used: other (ET tube exchanger) ET tube size: 7.5 Tube secured depth (cm): 27 Tube secured location: lips Tube placement confirmation: equal breath sounds bilaterally, no breath sounds over epigastrium and confirmation by capnometry Patient tolerated procedure: well Intubation complications: hypoxia Additional comments: Postprocedure patient desaturated into 80s. Patient was bagged with people with return of saturation in 90. People in a ventilator increased to 20 post procedure
--- NOTE | 2020-06-26 11:03 | PCDIET ---
IV fluids stopped and Lasix ordered. MD ordered tube feedings to start: Glucerna 1.2 at 20mL/hr, advancing by 10mL/hr every 4 hours, as tolerated, to goal of 65mL/hr. This will provide 1716kcal (1808kcal with Propofol at current rate), 85g protein and 1151mL free water, given 22 hour daily infusion. Recommend standard water flush of 30mL every 4 hours at this time.
[2020-06-26] MEDS: LIDOCAINE HCL 1% PF INJ 5 ML VIAL INFILTRATE (12:00)
[2020-06-26] MEDS: REMDESIVIR 200 MG/NS 250 ML 200 MG/250 ML BAG 250 MG IVPB (12:41)
[2020-06-26 12:48] LABS: Glucose Point of Care 74 (65-105)
[2020-06-26] MEDS: FUROSEMIDE INJ 40 MG/4 ML VIAL IV PUSH ×2 (12:55→17:16)
--- NOTE | 2020-06-26 13:00 | PCRCNOTE ---
ABG was delayed per PICC line placement
[2020-06-26 13:08] LABS: Alanine Aminotransferase 57 U/L (4-50); Lactate Dehydrogenase 1329 U/L (313-618)
[2020-06-26 13:28] LABS: pH ABG 7.436 (7.350-7.450)
[2020-06-26 13:29] LABS: Alveolar/Arterial O2 Gradient 313.6 mmHg; Base Excess ABG -0.1 mEq/l (+/-2.0); Carboxyhemoglobin 0.3 % THb (0-2.0); Device VENTILATOR; Fractional Inspired Oxygen 90 %; HCO3 ABG 23.7 mEq/l (22.0-26.0); Methemoglobin ABG 0.3 %THb (0-1.5); Modified Allen's Test Pass; Oxygen Content ABG 19.5 %vol (16.0-22.0); Oxygen Saturation ABG 99.7 % (95.0-100.0); Oxyhemoglobin 98.3 % THb (90.0-100.0); PO2 ABG 291.2 mmHg (80.0-100.0); PO2 FiO2 Ratio Arterial Blood 3.24 %; Reduced Hemoglobin 1.1 %THb (0-5.0); Site Drawn LEFT RADIAL; Total Hemoglobin 13.6 g/dL (12.0-18.0)
[2020-06-26 13:30] LABS: Arterial Blood Gas PEEP 20 cmH2O; Arterial Blood Gas Tidal Volume 450 ml; Arterial Blood Gas Vent Mode CMV; Arterial Blood Gas Ventilator rate 20 /MIN
[2020-06-26] MEDS: CENTRAL LINE FLUSH 10 ML IV PUSH ×2 (13:45→21:21)
[2020-06-26 13:53] LABS: Glucose Point of Care 138 (65-105)
--- NOTE | 2020-06-26 15:23 | PM.IMPN ---
Progress Note: A&P Assessment and Plan (1) Acute hypoxemic respiratory failure: Code(s): J96.01 - Acute respiratory failure with hypoxia Status: Acute Assessment and Plan: The patient has bilateral acute pulmonary emboli. He is on subcu Lovenox. He is being checked for For COVID-19. Patient was started on Decadron. Patient is also being treated for pneumonia with Levaquin. In the intensive care unit under the care of the interior decorator and is on a ventilator. Vent settings per interior decorator. Initial pH was 7.305 is now 7.413. PO2 was noted to be 28.1 now 85.3. 06/26/20 15:23 Patient is 74 year old male was found unresponsive at home and desaturating he was brought to the emergency department and was emergently intubated, CT scan of the chest showed bilateral pulmonary emboli and patient is anticoagulated with Lovenox patient is also positive for COVID-19 and being treated with dexamethasone and Remdesivir, patient currently on vent and unfortunately unable to provide any review of symptoms or history, patient is seen by interior decorator there was a problem with ET and it is corrected now. (2) Suspected COVID-19 virus infection: Code(s): Z20.828 - Contact with and (suspected) exposure to other viral communicable diseases Status: Acute Assessment and Plan: The patient was started on Decadron and he is in isolation. (3) Pneumonia: Qualifiers: Laterality: unspecified laterality Lung location: unspecified part of lung Pneumonia type: due to unspecified organism Qualified Code(s): J18.9 - Pneumonia, unspecified organism Code(s): J18.9 - Pneumonia, unspecified organism Status: Acute Assessment and Plan: Patient was started on Levaquin and blood cultures are pending. Patient received 1 L bolus and is now on IV fluids. Sputum cultures. Urine being checked for legionnaires. (4) Pulmonary embolism: Qualifiers: Acute cor pulmonale presence: without acute cor pulmonale Chronicity: acute Pulmonary embolism type: unspecified Qualified Code(s): I26.99 - Other pulmonary embolism without acute cor pulmonale Code(s): I26.99 - Other pulmonary embolism without acute cor pulmonale Status: Acute Assessment and Plan: Patient is receiving subcu Lovenox and also has a DVT. In the right leg. (5) Essential (primary) hypertension: Code(s): I10 - Essential (primary) hypertension Status: Chronic Assessment and Plan: Medications a looks like the patient had been on lisinopril. Patient's blood pressure is soft. Hold any blood pressure medicine at this time. (6) BPH (benign prostatic hyperplasia): Code(s): N40.0 - Benign prostatic hyperplasia without lower urinary tract symptoms Status: Chronic Assessment and Plan: Oneal catheter. The patient has a history of having prostate cancer with a prostatectomy. Time Spent With Patient Time with patient: 15 - 25 minutes Subjective Date/time seen: 06/26/20 15:23 Patient is 74 year old male was found unresponsive at home and desaturating he was brought to the emergency department and was emergently intubated, CT scan of the chest showed bilateral pulmonary emboli and patient is anticoagulated with Lovenox patient is also positive for COVID-19 and being treated with dexamethasone and Remdesivir, patient currently on vent and unfortunately unable to provide any review of symptoms or history, patient is seen by interior decorator there was a problem with ET and it is corrected now. Review of Systems Review of Systems: ROS unobtainable: Yes unobtainable due to endotracheal tube Exam Narrative: Exam Narrative: Patient is comfortable, NAD HEENT: ET tube in place LUNGS: Normal respiratory effort ABD: Nondistended Lower extremities: no edema SKIN: nonjaundiced Neuro: On vent and sedated. Objective Data Vital Signs Vital Signs: Vital Signs - 24 hr 06/25/20 15:53 06/25/20 16:00 12
[2020-06-26] MEDS: FENTANYL 2,500MCG/NS250ML(*CRX 2,500 MCG/250 ML BAG IV CONT (15:35)
[2020-06-26 17:54] LABS: Glucose Point of Care 142 (65-105)
[2020-06-26] MEDS: PROPOFOL IV EMULSION 100 ML 17.46 MG IV CONT (18:28)
[2020-06-27] VITALS (29 sets, daily range): BP systolic 90–139; BP diastolic 57–77; PULSE 60–81; RESP 17–22; TEMP 36.2–36.8; O2SAT 88–97
[2020-06-27] MEDS: PROPOFOL IV EMULSION 100 ML 17.46 MG IV CONT ×3 (00:40→11:07)
[2020-06-27 04:40] LABS: Hematocrit 36.6 % (42.0-52.0); Hemoglobin 12.6 g/dL (14.0-18.0); Mean Corpuscular HGB Conc 34.4 g/dl (32-36); Mean Corpuscular Hemoglobin 33.8 pg (26-34); Mean Corpuscular Volume 98.1 fl (80-100); Mean Platelet Volume 10.9 fl (7.4-10.4); Platelet Count Result 241 k/mm3 (150-375); Red Blood Count 3.73 M/mm3 (4.6-6.20); Red Cell Distribution Width 12.8 % (11.5-14.5)
[2020-06-27 05:10] LABS: Alveolar/Arterial O2 Gradient 197.6 mmHg; Base Excess ABG 1.6 mEq/l (+/-2.0); Carboxyhemoglobin 0.3 % THb (0-2.0); HCO3 ABG 26.5 mEq/l (22.0-26.0); Oxygen Content ABG 24.1 %vol (16.0-22.0); Oxygen Saturation ABG 98.1 % (95.0-100.0); PCO2 ABG 42.4 mmHg (35.0-45.0); PO2 ABG 111.2 mmHg (80.0-100.0); Total Hemoglobin 17.6 g/dL (12.0-18.0); pH ABG 7.414 (7.350-7.450)
[2020-06-27 05:11] LABS: Device VENTILATOR; Fractional Inspired Oxygen 50 %; Methemoglobin ABG 0.5 %THb (0-1.5); Modified Allen's Test Unable to perform; PO2 FiO2 Ratio Arterial Blood 2.22 %; Reduced Hemoglobin 2.2 %THb (0-5.0); Site Drawn RIGHT RADIAL
[2020-06-27 05:12] LABS: Arterial Blood Gas PEEP 16 cmH2O; Arterial Blood Gas Tidal Volume 450 ml; Arterial Blood Gas Vent Mode CMV; Arterial Blood Gas Ventilator rate 20 /MIN
[2020-06-27] MEDS: CENTRAL LINE FLUSH 10 ML IV PUSH ×3 (05:50→21:27)
[2020-06-27 06:11] LABS: Glucose Point of Care 131 (65-105)
[2020-06-27 07:29] LABS: Glucose Point of Care 128 (65-105)
[2020-06-27] MEDS: ENOXAPARIN 120 MG/0.8 ML SYRINGE 115 MG SUB-Q ×2 (08:04→21:26)
[2020-06-27] MEDS: PANTOPRAZOLE SODIUM IV 40 MG VIAL IV PUSH (08:04)
[2020-06-27] MEDS: DEXAMETHASONE 2 MG TABLET 6 MG PO (08:05)
[2020-06-27] MEDS: ASPIRIN 325 MG TABLET PO (08:05)
[2020-06-27 08:25] LABS: Alanine Aminotransferase 56 U/L (4-50); Albumin Level 2.7 g/dL (3.5-5.1); Alkaline Phosphatase 68 U/L (38-126); Anion Gap 5 mmol/L (8-16); Aspartate Amino Transferase 52 U/L (17-59); Bilirubin,Total 0.5 mg/dL (0.2-1.3); Blood Urea Nitrogen 41 mg/dL (9-20); Calcium 7.8 mg/dL (8.4-10.2); Carbon Dioxide 31 mmol/L (22-30); Chloride 103 mmol/L (98-107); Estimated CRCL calculation 94 ml/min; Estimated Glomerular Filt Rate > 60; Glucose 120 mg/dL (75-110); Magnesium 2.8 mg/dL (1.6-2.3); Sodium 139 mmol/L (137-145)
[2020-06-27] MEDS: REMDESIVIR 100 MG/NS 250 ML 100 MG/250 ML BAG 250 MG IVPB (10:10)
[2020-06-27 11:17] LABS: Glucose Point of Care 134 (65-105)
--- NOTE | 2020-06-27 12:53 | WPDINTPN ---
Progress Note: A&P Assessment and Plan (1) Acute hypoxemic respiratory failure: Code(s): J96.01 - Acute respiratory failure with hypoxia Status: Acute Assessment and Plan: Multifactorial -bilateral PE, pneumonia versus COVID-19, congestive heart failure ABG and CT reviewed 06/26-ET tube was exchanged due to cuff leak and curling up in his pharynx. Patient was placed in prone position 06/27 decrease oxygen requirement. Peep decreased to 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 Patient has been feeling sick for few days but he did not get himself checked. She also has not get gotten herself checked and I have encouraged her to get tested and isolate herself. Patient is in Airborne, Droplet and Contact Isolation Continue dexamethasone 04/25 and Remdesivir 04/26 Monitor inflammatory markers (3) Sepsis: Code(s): A41.9 - Sepsis, unspecified organism Status: Acute Assessment and Plan: Secondary to pneumonia versus sinusitis Blood pressure adequate IV fluids discontinued yesterday due to congestive heart failure and COVID-19 Blood sputum, culture sent and negative till now Empiric Levaquin for community-acquired pneumonia. Will continue for 5 days (4) Pneumonia: Qualifiers: Laterality: unspecified laterality Lung location: unspecified part of lung Pneumonia type: due to unspecified organism Qualified Code(s): J18.9 - Pneumonia, unspecified organism Code(s): J18.9 - Pneumonia, unspecified organism Status: Acute Assessment and Plan: Continue antibiotics for empiric bacterial coverage Levaquin as patient is allergic to cephalexin. Cultures pending Blood and sputum culture Urine Legionella and strep antigen (5) Pulmonary embolism: Qualifiers: Acute cor pulmonale presence: without acute cor pulmonale Chronicity: acute Pulmonary embolism type: unspecified Qualified Code(s): I26.99 - Other pulmonary embolism without acute cor pulmonale Code(s): I26.99 - Other pulmonary embolism without acute cor pulmonale Status: Acute Assessment and Plan: Subcutaneous Lovenox mg per kg q.12 hours venous Dopplers of lower extremities showed DVT in right leg Echocardiogram reviewed BNP elevated Serial troponins mildly elevated (6) Encephalopathy acute: Code(s): G93.40 - Encephalopathy, unspecified Status: Acute Assessment and Plan: Head CT in ED IMPRESSION: 1. Normal brain. No acute intracranial process. 2. Layering fluid in the right maxillary sinus. Correlate clinically for acute sinusitis. Patient following commands and moving all 4 extremities. Currently sedated with propofol (7) Hyperglycemia: Code(s): R73.9 - Hyperglycemia, unspecified Status: Acute Assessment and Plan: Sliding scale insulin (8) Sinusitis: Code(s): J32.9 - Chronic sinusitis, unspecified Status: Acute Assessment and Plan: Seen on head CT. Patient currently on Levaquin (9) NSTEMI (non-ST elevated myocardial infarction): Code(s): I21.4 - Non-ST elevation (NSTEMI) myocardial infarction Status: Acute Assessment and Plan: Mild elevation of troponin likely secondary to PE and respiratory failure Serial troponin review echocardiogram reviewed EKG reviewed-nonspecific T-wave changes Aspirin Lovenox (10) CHF (congestive heart failure): Code(s): I50.9 - Heart failure, unspecified Status: Acute Assessment and Plan: Echo shows Left ventricular systolic function is moderately reduced, estimated at 40-45%.
--- NOTE | 2020-06-27 12:57 | PCDIET ---
ICU Rounding Note: Tube feedings were not initiated 06/26/20 due to prone positioning. MD ordered to start Glucerna 1.2 at 20mL/hr today and continue when prone. If tolerated, recommend goal rate of 65mL/hr. Last recorded weight is 119.4kg which is increased from last review, despite -I/O. Will monitor. Bowel Motility: No documented BM as of yet. Labs Reviewed: Hgb (12.6), Hct (36.6), Glu (120), BUN (41), Alb (2.7), Matias Ca (8.84), Mg (2.8) Meds Noted: Dexamethasone, Fentanyl, Novolog, Levaquin, Protonix, Remdesivir, Propofol (rate of 17.46mL/hr provides 460kcal per day) Additional Notes: No documented skin breakdown. Following daily in ICU rounds. Assessing/reassessing every Thursday/Thursday.
[2020-06-27] MEDS: FUROSEMIDE INJ 40 MG/4 ML VIAL IV PUSH (14:17)
[2020-06-27] MEDS: PROPOFOL IV EMULSION 100 ML 20.95 MG IV CONT ×2 (16:31→21:27)
[2020-06-27 17:38] LABS: Glucose Point of Care 158 (65-105)
[2020-06-27 21:35] LABS: Pneumococcal Antigen Urine Not Detected (Not Detected)
[2020-06-28] VITALS (29 sets, daily range): BP systolic 95–139; BP diastolic 59–81; PULSE 50–68; RESP 10–20; TEMP 35.9–36.7; O2SAT 92–100
[2020-06-28 01:49] LABS: Glucose Point of Care 139 (65-105)
[2020-06-28] MEDS: PROPOFOL IV EMULSION 100 ML 20.95 MG IV CONT ×5 (02:12→21:05)
[2020-06-28 04:55] LABS: Alveolar/Arterial O2 Gradient 146.5 mmHg; Base Excess ABG 2.3 mEq/l (+/-2.0); Carboxyhemoglobin 0.3 % THb (0-2.0); Fractional Inspired Oxygen 40 %; HCO3 ABG 26.9 mEq/l (22.0-26.0); Methemoglobin ABG 0.3 %THb (0-1.5); Oxygen Content ABG 19.3 %vol (16.0-22.0); Oxygen Saturation ABG 97.2 % (95.0-100.0); Oxyhemoglobin 95.6 % THb (90.0-100.0); PCO2 ABG 41.4 mmHg (35.0-45.0); PO2 ABG 91.1 mmHg (80.0-100.0); PO2 FiO2 Ratio Arterial Blood 2.28 %; Reduced Hemoglobin 3.8 %THb (0-5.0); Total Hemoglobin 14.3 g/dL (12.0-18.0)
[2020-06-28 04:56] LABS: Arterial Blood Gas PEEP 12 cmH2O; Arterial Blood Gas Vent Mode CMV; Arterial Blood Gas Ventilator rate 20 /MIN; Device VENTILATOR; Modified Allen's Test Unable to perform; Site Drawn LEFT RADIAL
[2020-06-28 04:57] LABS: Arterial Blood Gas Tidal Volume 450 ml
[2020-06-28] MEDS: CENTRAL LINE FLUSH 10 ML IV PUSH ×3 (05:45→21:10)
[2020-06-28 06:00] LABS: Glucose Point of Care 122 (65-105)
[2020-06-28 07:19] LABS: Hematocrit 39.2 % (42.0-52.0); Mean Corpuscular HGB Conc 35.7 g/dl (32-36); Mean Corpuscular Hemoglobin 36.1 pg (26-34); Mean Platelet Volume 10.8 fl (7.4-10.4); Platelet Count Result 246 k/mm3 (150-375); Red Blood Count 3.88 M/mm3 (4.6-6.20); Red Cell Distribution Width 13.1 % (11.5-14.5); White Blood Count 12.8 K/mm3 (4.5-10.0)
--- NOTE | 2020-06-28 07:19 | P.CDI_ITS ---
CDI Query Clarification Request -NSTEMI has been documented by aircraft engine specialist - Mild elevation of troponin likely secondary to PE and respiratory failure also documented by aircraft engine specialist. -Troponin 0.139, 0.407, 0.212, 0.130 Please clarify if NSTEMI has been ruled in or ruled out. <Huong Peace RN - Last Filed: 06/28/20 07:23> Clarified Diagnosis (1) NSTEMI (non-ST elevated myocardial infarction): Code(s): I21.4 - Non-ST elevation (NSTEMI) myocardial infarction <Huong Peace RN - Last Filed: 06/28/20 07:23> Status: Acute <Huong Peace RN - Last Filed: 06/28/20 07:23> Assessment and Plan: patient with mildly elevated tropes most likely demand ischemia secondary to PE and respiratory failure. <Shayy Suazo MD - Last Filed: 07/16/20 16:42>
[2020-06-28] MEDS: ENOXAPARIN 120 MG/0.8 ML SYRINGE 115 MG SUB-Q ×2 (08:16→21:10)
[2020-06-28] MEDS: DEXAMETHASONE 2 MG TABLET 6 MG PO (08:17)
[2020-06-28] MEDS: PANTOPRAZOLE SODIUM IV 40 MG VIAL IV PUSH (08:17)
[2020-06-28] MEDS: ASPIRIN 325 MG TABLET PO (08:17)
[2020-06-28 08:28] LABS: Alanine Aminotransferase 60 U/L (4-50); Albumin Level 2.9 g/dL (3.5-5.1); Alkaline Phosphatase 67 U/L (38-126); Anion Gap 3 mmol/L (8-16); Aspartate Amino Transferase 48 U/L (17-59); Bilirubin,Total 0.6 mg/dL (0.2-1.3); Blood Urea Nitrogen 43 mg/dL (9-20); Calcium 8.2 mg/dL (8.4-10.2); Carbon Dioxide 34 mmol/L (22-30); Chloride 104 mmol/L (98-107); Estimated CRCL calculation 83 ml/min; Estimated Glomerular Filt Rate > 60; Glucose 115 mg/dL (75-110); Lactate Dehydrogenase 871 U/L (313-618); Magnesium 3.1 mg/dL (1.6-2.3); Potassium 4.3 mmol/L (3.4-5.0); Sodium 141 mmol/L (137-145)
--- NOTE | 2020-06-28 09:36 | WPDINTPN ---
Progress Note: A&P Assessment and Plan (1) Acute hypoxemic respiratory failure: Code(s): J96.01 - Acute respiratory failure with hypoxia Status: Acute Assessment and Plan: Multifactorial -bilateral PE, pneumonia versus COVID-19, congestive heart failure ABG and CT reviewed 06/26-ET tube was exchanged due to cuff leak and curling up in his pharynx. Patient was placed in prone position 06/27 decrease oxygen requirement. Peep decreased to [address] patient in prone position again today 06/28 Patient was placed in prone position for ventilation overnight and was changed to supine this morning. 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 Patient has been feeling sick for few days but he did not get himself checked. She also has not get gotten herself checked and I have encouraged her to get tested and isolate herself. Patient is in Airborne, Droplet and Contact Isolation Continue dexamethasone 04/25 and Remdesivir 04/26 Monitor inflammatory markers which are improving (3) Sepsis: Code(s): A41.9 - Sepsis, unspecified organism Status: Acute Assessment and Plan: Secondary to pneumonia versus sinusitis Blood pressure adequate IV fluids discontinued yesterday due to congestive heart failure and COVID-19 Blood sputum, culture sent and negative till now Empiric Levaquin for community-acquired pneumonia. Will continue for 5 days (4) Pneumonia: Qualifiers: Laterality: unspecified laterality Lung location: unspecified part of lung Pneumonia type: due to unspecified organism Qualified Code(s): J18.9 - Pneumonia, unspecified organism Code(s): J18.9 - Pneumonia, unspecified organism Status: Acute Assessment and Plan: Continue antibiotics for empiric bacterial coverage Levaquin as patient is allergic to cephalexin. Cultures pending Blood and sputum culture Urine Legionella pending and strep antigen is negative (5) Pulmonary embolism: Qualifiers: Acute cor pulmonale presence: without acute cor pulmonale Chronicity: acute Pulmonary embolism type: unspecified Qualified Code(s): I26.99 - Other pulmonary embolism without acute cor pulmonale Code(s): I26.99 - Other pulmonary embolism without acute cor pulmonale Status: Acute Assessment and Plan: Subcutaneous Lovenox mg per kg q.12 hours venous Dopplers of lower extremities showed DVT in right leg Echocardiogram reviewed BNP elevated Serial troponins mildly elevated (6) Encephalopathy acute: Code(s): G93.40 - Encephalopathy, unspecified Status: Acute Assessment and Plan: Head CT in ED IMPRESSION: 1. Normal brain. No acute intracranial process. 2. Layering fluid in the right maxillary sinus. Correlate clinically for acute sinusitis. Patient following commands and moving all 4 extremities. Currently sedated with propofol (7) Hyperglycemia: Code(s): R73.9 - Hyperglycemia, unspecified Status: Acute Assessment and Plan: Sliding scale insulin (8) Sinusitis: Code(s): J32.9 - Chronic sinusitis, unspecified Status: Acute Assessment and Plan: Seen on head CT. Patient currently on Levaquin (9) NSTEMI (non-ST elevated myocardial infarction): Code(s): I21.4 - Non-ST elevation (NSTEMI) myocardial infarction Status: Acute Assessment and Plan: Mild elevation of troponin likely secondary to PE and respiratory failure Serial troponin review echocardiogram reviewed EKG reviewed-nonspecific T-wave changes Aspirin Lovenox (10) CHF (congestive heart failure): C
[2020-06-28 10:25] LABS: NT Pro B Type Natriuretic Pept 164 PG/ML (5-100)
[2020-06-28] MEDS: REMDESIVIR 100 MG/NS 250 ML 100 MG/250 ML BAG 250 MG IVPB (11:10)
[2020-06-28] MEDS: FENTANYL 2,500MCG/NS250ML(*CRX 2,500 MCG/250 ML BAG IV CONT (11:11)
[2020-06-28 11:19] LABS: Glucose Point of Care 107 (65-105)
--- NOTE | 2020-06-28 12:44 | PCDIET ---
ICU Rounding Note: Patient tolerating Glucerna 1.2 at 20mL/hr with 30mL water flush every 4 hours. Recommended increasing to 50mL/hr goal rate while on current dose of Propofol which was ordered by . Last recorded weight is 117kg which is decreased from last review. -I/O. Bowel Motility: No documented BM. Labs Reviewed: Glu (115), Alb (2.9) Meds Noted: Dexamethasone, Fentanyl, Novolog, Levaquin, Protonix, Remdesivir, Propofol (rate of 20.952mL/hr provides 553kcal per day) Additional Notes: No documented skin breakdown. Following daily in ICU rounds. Assessing/reassessing every Thursday/Thursday.
[2020-06-28 17:23] LABS: Glucose Point of Care 142 (65-105)
[2020-06-28 18:23] LABS: Legionella pneumophila Ag Ur Not Detected (Not Detected)
[2020-06-28 23:59] LABS: Glucose Point of Care 134 (65-105)
[2020-06-29] VITALS (32 sets, daily range): BP systolic 100–156; BP diastolic 67–78; PULSE 55–81; RESP 18–25; TEMP 36.1–37.5; O2SAT 91–99
[2020-06-29] MEDS: PROPOFOL IV EMULSION 100 ML 17.46 MG IV CONT ×5 (02:13→23:10)
[2020-06-29 04:02] LABS: Hematocrit 37.3 % (42.0-52.0); Hemoglobin 12.6 g/dL (14.0-18.0); Mean Corpuscular HGB Conc 33.8 g/dl (32-36); Mean Corpuscular Hemoglobin 34.5 pg (26-34); Mean Corpuscular Volume 102.2 fl (80-100); Mean Platelet Volume 10.6 fl (7.4-10.4); Platelet Count Result 259 k/mm3 (150-375); Red Blood Count 3.65 M/mm3 (4.6-6.20); White Blood Count 9.9 K/mm3 (4.5-10.0)
[2020-06-29 04:18] LABS: Alveolar/Arterial O2 Gradient 103.9 mmHg; Carboxyhemoglobin 0.1 % THb (0-2.0); Fractional Inspired Oxygen 30 %; HCO3 ABG 23.8 mEq/l (22.0-26.0); Methemoglobin ABG 0.2 %THb (0-1.5); Oxygen Content ABG 18.7 %vol (16.0-22.0); Oxygen Saturation ABG 94.1 % (95.0-100.0); Oxyhemoglobin 92.5 % THb (90.0-100.0); PCO2 ABG 36.2 mmHg (35.0-45.0); PO2 ABG 67.5 mmHg (80.0-100.0); PO2 FiO2 Ratio Arterial Blood 2.25 %; Reduced Hemoglobin 7.2 %THb (0-5.0); Total Hemoglobin 14.4 g/dL (12.0-18.0); pH ABG 7.436 (7.350-7.450)
[2020-06-29 04:20] LABS: Arterial Blood Gas Ventilator rate 20 /MIN; Device VENTILATOR; Modified Allen's Test Pass; Site Drawn RIGHT RADIAL
[2020-06-29 04:21] LABS: Arterial Blood Gas Tidal Volume 450 ml; Arterial Blood Gas Vent Mode CMV
[2020-06-29] MEDS: CENTRAL LINE FLUSH 10 ML IV PUSH ×3 (06:23→20:02)
[2020-06-29 06:43] LABS: Glucose Point of Care 117 (65-105)
[2020-06-29] MEDS: FENTANYL 2,500MCG/NS250ML(*CRX 2,500 MCG/250 ML BAG 10 MCG IV CONT (06:44)
[2020-06-29] MEDS: ASPIRIN 325 MG TABLET PO (08:24)
[2020-06-29] MEDS: DEXAMETHASONE 2 MG TABLET 6 MG PO (08:24)
[2020-06-29] MEDS: ENOXAPARIN 120 MG/0.8 ML SYRINGE 115 MG SUB-Q ×2 (08:24→20:02)
[2020-06-29] MEDS: PANTOPRAZOLE SODIUM IV 40 MG VIAL IV PUSH (08:44)
[2020-06-29 10:07] LABS: Alanine Aminotransferase 58 U/L (4-50); Albumin Level 2.6 g/dL (3.5-5.1); Alkaline Phosphatase 64 U/L (38-126); Anion Gap 0 mmol/L (8-16); Aspartate Amino Transferase 56 U/L (17-59); Bilirubin,Total 0.6 mg/dL (0.2-1.3); Blood Urea Nitrogen 38 mg/dL (9-20); Carbon Dioxide 32 mmol/L (22-30); Chloride 107 mmol/L (98-107); Estimated CRCL calculation 94 ml/min; Estimated Glomerular Filt Rate > 60; Glucose 128 mg/dL (75-110); Magnesium 2.8 mg/dL (1.6-2.3); Potassium 4.1 mmol/L (3.4-5.0); Sodium 139 mmol/L (137-145)
[2020-06-29] MEDS: REMDESIVIR 100 MG/NS 250 ML 100 MG/250 ML BAG 250 MG IVPB (11:17)
--- NOTE | 2020-06-29 11:40 | PCDIET ---
Nutrition Follow-Up Complete: Nutrition Diagnosis: Inadequate oral intake related to oral intubation as evidenced by NPO status. Nutrition Goal: Patient to meet estimated nutritional needs. Goal in progress. Tube feedings held overnight for documented intolerance but have been resumed at 50mL/hr (Glucerna 1.2) with 30mL water flush every 4 hours. Last recorded weight is 118.2 kg which is increased from last review. +I/O. Bowel Motility: No documented BM. If medically appropriate, would consider medication to promote BM. Labs Reviewed: Hgb (12.6), Hct (37.3), Glu (128), BUN (38), Alb (2.6), Matias Ca (9.12), Mg (2.8) Meds Noted: Dexamethasone, Fentanyl, Novolog, Levaquin, Protonix, Remdesivir Additional Notes: No documented skin breakdown. Will continue to monitor with same goal. Nutrition Monitoring and Evaluation: Follow up every Thursday/Thursday.
[2020-06-29 12:06] LABS: Glucose Point of Care 114 (65-105)
--- NOTE | 2020-06-29 14:46 | WPDINTPN ---
Progress Note: A&P Assessment and Plan (1) Acute hypoxemic respiratory failure: Code(s): J96.01 - Acute respiratory failure with hypoxia Status: Acute Assessment and Plan: Multifactorial -bilateral PE, pneumonia versus COVID-19, congestive heart failure ABG and CT reviewed 06/26-ET tube was exchanged due to cuff leak and curling up in his pharynx. Patient was placed in prone position 06/27 decrease oxygen requirement. Peep decreased to [address] patient in prone position again today 06/28 Patient was placed in prone position for ventilation overnight and was changed to supine this morning. Peep to 12 and FiO2 is at 40% 06/29 12 peep and FiO2 is at 30%. 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 Patient has been feeling sick for few days but he did not get himself checked. She also has not get gotten herself checked and I have encouraged her to get tested and isolate herself. Patient is in Airborne, Droplet and Contact Isolation Continue dexamethasone 04/25 and Remdesivir 04/26 Monitor inflammatory markers which are improving (3) Sepsis: Code(s): A41.9 - Sepsis, unspecified organism Status: Acute Assessment and Plan: Secondary to pneumonia versus sinusitis Blood pressure adequate IV fluids discontinued yesterday due to congestive heart failure and COVID-19 Blood sputum, culture sent and negative till now Empiric Levaquin for community-acquired pneumonia. Will complete his course today (4) Pneumonia: Qualifiers: Laterality: unspecified laterality Lung location: unspecified part of lung Pneumonia type: due to unspecified organism Qualified Code(s): J18.9 - Pneumonia, unspecified organism Code(s): J18.9 - Pneumonia, unspecified organism Status: Acute Assessment and Plan: Continue antibiotics for empiric bacterial coverage Levaquin as patient is allergic to cephalexin. Cultures pending Blood and sputum culture Urine Legionella and strep antigen is negative (5) Pulmonary embolism: Qualifiers: Acute cor pulmonale presence: without acute cor pulmonale Chronicity: acute Pulmonary embolism type: unspecified Qualified Code(s): I26.99 - Other pulmonary embolism without acute cor pulmonale Code(s): I26.99 - Other pulmonary embolism without acute cor pulmonale Status: Acute Assessment and Plan: Subcutaneous Lovenox mg per kg q.12 hours venous Dopplers of lower extremities showed DVT in right leg Echocardiogram reviewed BNP was elevated but improved Serial troponins were mildly elevated (6) Encephalopathy acute: Code(s): G93.40 - Encephalopathy, unspecified Status: Acute Assessment and Plan: Head CT in ED IMPRESSION: 1. Normal brain. No acute intracranial process. 2. Layering fluid in the right maxillary sinus. Correlate clinically for acute sinusitis. Patient was following commands and moving all 4 extremities. Currently sedated with propofol (7) Hyperglycemia: Code(s): R73.9 - Hyperglycemia, unspecified Status: Acute Assessment and Plan: Sliding scale insulin (8) Sinusitis: Code(s): J32.9 - Chronic sinusitis, unspecified Status: Acute Assessment and Plan: Seen on head CT. Patient currently on Levaquin (9) NSTEMI (non-ST elevated myocardial infarction): Code(s): I21.4 - Non-ST elevation (NSTEMI) myocardial infarction Status: Acute Assessment and Plan: Mild elevation of troponin likely secondary to PE and respiratory failure Serial troponin review echocardiogram reviewed EKG reviewed-nonspecific T-wave changes Aspirin Lovenox (10) C
[2020-06-29] MEDS: FUROSEMIDE INJ 40 MG/4 ML VIAL IV PUSH (17:19)
[2020-06-29 17:32] LABS: Glucose Point of Care 115 (65-105)
[2020-06-29 23:25] LABS: Glucose Point of Care 125 (65-105)
[2020-06-30] VITALS (32 sets, daily range): BP systolic 94–136; BP diastolic 61–76; PULSE 66–85; RESP 18–24; TEMP 35.8–37.7; O2SAT 91–96
[2020-06-30] MEDS: CENTRAL LINE FLUSH 10 ML IV PUSH ×3 (04:19→20:01)
[2020-06-30] MEDS: PROPOFOL IV EMULSION 100 ML 17.46 MG IV CONT ×3 (04:20→15:20)
[2020-06-30 04:34] LABS: Hematocrit 46.7 % (42.0-52.0); Hemoglobin 15.6 g/dL (14.0-18.0); Mean Corpuscular HGB Conc 33.4 g/dl (32-36); Mean Corpuscular Hemoglobin 33.7 pg (26-34); Mean Corpuscular Volume 100.9 fl (80-100); Mean Platelet Volume 10.2 fl (7.4-10.4); Platelet Count Result 366 k/mm3 (150-375); Red Blood Count 4.63 M/mm3 (4.6-6.20); Red Cell Distribution Width 13.2 % (11.5-14.5); White Blood Count 13.5 K/mm3 (4.5-10.0)
[2020-06-30 04:46] LABS: Alanine Aminotransferase 110 U/L (4-50); Albumin Level 2.9 g/dL (3.5-5.1); Alkaline Phosphatase 76 U/L (38-126); Anion Gap 6 mmol/L (8-16); Aspartate Amino Transferase 102 U/L (17-59); Bilirubin,Total 0.7 mg/dL (0.2-1.3); Blood Urea Nitrogen 35 mg/dL (9-20); Calcium 8.2 mg/dL (8.4-10.2); Carbon Dioxide 31 mmol/L (22-30); Chloride 103 mmol/L (98-107); Estimated CRCL calculation 92 ml/min; Estimated Glomerular Filt Rate > 60; Glucose 123 mg/dL (75-110); Magnesium 2.6 mg/dL (1.6-2.3); Potassium 4.2 mmol/L (3.4-5.0); Sodium 140 mmol/L (137-145)
[2020-06-30 06:02] LABS: Alveolar/Arterial O2 Gradient 102.5 mmHg; Base Excess ABG 1.1 mEq/l (+/-2.0); Carboxyhemoglobin 0.4 % THb (0-2.0); Fractional Inspired Oxygen 30 %; HCO3 ABG 24.1 mEq/l (22.0-26.0); Methemoglobin ABG 0.4 %THb (0-1.5); Oxygen Content ABG 20.7 %vol (16.0-22.0); Oxygen Saturation ABG 95.5 % (95.0-100.0); Oxyhemoglobin 93.1 % THb (90.0-100.0); PCO2 ABG 33.7 mmHg (35.0-45.0); PO2 ABG 71.8 mmHg (80.0-100.0); PO2 FiO2 Ratio Arterial Blood 2.39 %; Reduced Hemoglobin 6.1 %THb (0-5.0); Total Hemoglobin 15.8 g/dL (12.0-18.0); pH ABG 7.472 (7.350-7.450)
[2020-06-30 06:04] LABS: Device VENTILATOR; Modified Allen's Test Unable to perform; Site Drawn RIGHT RADIAL
[2020-06-30 06:05] LABS: Arterial Blood Gas PEEP 12 cmH2O; Arterial Blood Gas Tidal Volume 450 ml; Arterial Blood Gas Vent Mode CMV; Arterial Blood Gas Ventilator rate 20 /MIN
[2020-06-30] MEDS: DEXAMETHASONE 2 MG TABLET 6 MG PO (09:14)
[2020-06-30] MEDS: ASPIRIN 325 MG TABLET PO (09:14)
[2020-06-30] MEDS: ENOXAPARIN 120 MG/0.8 ML SYRINGE 115 MG SUB-Q ×2 (09:15→20:00)
[2020-06-30] MEDS: PANTOPRAZOLE SODIUM IV 40 MG VIAL IV PUSH (09:15)
--- NOTE | 2020-06-30 09:55 | WPDINTPN ---
Progress Note: A&P Assessment and Plan (1) Acute hypoxemic respiratory failure: Code(s): J96.01 - Acute respiratory failure with hypoxia Status: Acute Assessment and Plan: Multifactorial -bilateral PE, pneumonia versus COVID-19, congestive heart failure ABG and CT reviewed 06/26-ET tube was exchanged due to cuff leak and curling up in his pharynx. Patient was placed in prone position 06/27 decrease oxygen requirement. Peep decreased to [address] patient in prone position again today 06/28 Patient was placed in prone position for ventilation overnight and was changed to supine this morning. Peep to 12 and FiO2 is at 40% 06/29 12 peep and FiO2 is at 30%. Continue prone ventilation 06/30 FiO2 is at 30% I have to decreased the PEEP to 10. This patient has been having several skin damage areas from prone and oxygenation has improved. Will continue supine ventilation at this time as long as tolerated. 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 Patient has been feeling sick for few days but he did not get himself checked. She also has not get gotten herself checked and I have encouraged her to get tested and isolate herself. Patient is in Airborne, Droplet and Contact Isolation Continue dexamethasone 04/25 and Remdesivir 04/26 -will complete remdesivir today Monitor inflammatory markers which are improving (3) Sepsis: Code(s): A41.9 - Sepsis, unspecified organism Status: Acute Assessment and Plan: Secondary to pneumonia versus sinusitis Blood pressure adequate IV fluids discontinued due to congestive heart failure and COVID-19 Blood sputum, culture sent and negative till now Completed course of empiric Levaquin for community-acquired pneumonia. (4) Pneumonia: Qualifiers: Laterality: unspecified laterality Lung location: unspecified part of lung Pneumonia type: due to unspecified organism Qualified Code(s): J18.9 - Pneumonia, unspecified organism Code(s): J18.9 - Pneumonia, unspecified organism Status: Acute Assessment and Plan: Complete course of empiric bacterial coverage Levaquin as patient is allergic to cephalexin. Blood and sputum culture negative Urine Legionella and strep antigen is negative (5) Pulmonary embolism: Qualifiers: Acute cor pulmonale presence: without acute cor pulmonale Chronicity: acute Pulmonary embolism type: unspecified Qualified Code(s): I26.99 - Other pulmonary embolism without acute cor pulmonale Code(s): I26.99 - Other pulmonary embolism without acute cor pulmonale Status: Acute Assessment and Plan: Subcutaneous Lovenox mg per kg q.12 hours venous Dopplers of lower extremities showed DVT in right leg Echocardiogram reviewed BNP was elevated but improved Serial troponins were mildly elevated (6) Encephalopathy acute: Code(s): G93.40 - Encephalopathy, unspecified Status: Acute Assessment and Plan: Head CT in ED IMPRESSION: 1. Normal brain. No acute intracranial process. 2. Layering fluid in the right maxillary sinus. Correlate clinically for acute sinusitis. Patient was following commands and moving all 4 extremities. Currently sedated with propofol (7) Hyperglycemia: Code(s): R73.9 - Hyperglycemia, unspecified Status: Acute Assessment and Plan: Sliding scale insulin (8) Sinusitis: Code(s): J32.9 - Chronic sinusitis, unspecified Status: Acute Assessment and Plan: Seen on head CT. Patient currently on Levaquin (9) NSTEMI (non-ST elevated myocardial infarction):
[2020-06-30] MEDS: REMDESIVIR 100 MG/NS 250 ML 100 MG/250 ML BAG 250 MG IVPB (10:13)
[2020-06-30 11:01] LABS: Lactate Dehydrogenase 1130 U/L (313-618)
[2020-06-30] MEDS: FUROSEMIDE INJ 40 MG/4 ML VIAL IV PUSH (11:03)
[2020-06-30 12:27] LABS: Glucose Point of Care 152 (65-105)
--- NOTE | 2020-06-30 14:51 | PM.IMPN ---
Progress Note: A&P Assessment and Plan (1) Acute hypoxemic respiratory failure: Code(s): J96.01 - Acute respiratory failure with hypoxia Status: Acute Assessment and Plan: The patient has bilateral acute pulmonary emboli. He is on subcu Lovenox. He is being checked for For COVID-19. Patient was started on Decadron. Patient is also being treated for pneumonia with Levaquin. In the intensive care unit under the care of the printed circuit board panels developer and is on a ventilator. Vent settings per printed circuit board panels developer. Initial pH was 7.305 is now 7.413. PO2 was noted to be 28.1 now 85.3. 06/30/20 14:51 Patient is 74 year old male was found unresponsive at home and desaturating he was brought to the emergency department and was emergently intubated, CT scan of the chest showed bilateral pulmonary emboli and patient is anticoagulated with Lovenox patient is also positive for COVID-19 and being treated with dexamethasone and Remdesivir, patient currently on vent and unfortunately unable to provide any review of symptoms or history, patient is seen by printed circuit board panels developer there was a problem with ET and it is corrected now. Patient has been on vent for 5 days now, Patient has been placed on prone position, patient will complete 5 days course Remdesivir today will continue dexamethasone 11/26 patient is seen by printed circuit board panels developer and appreciate (2) Suspected COVID-19 virus infection: Code(s): Z20.828 - Contact with and (suspected) exposure to other viral communicable diseases Status: Acute Assessment and Plan: The patient was started on Decadron and he is in isolation. (3) Pneumonia: Qualifiers: Laterality: unspecified laterality Lung location: unspecified part of lung Pneumonia type: due to unspecified organism Qualified Code(s): J18.9 - Pneumonia, unspecified organism Code(s): J18.9 - Pneumonia, unspecified organism Status: Acute Assessment and Plan: Patient was started on Levaquin and blood cultures are pending. Patient received 1 L bolus and is now on IV fluids. Sputum cultures. Urine being checked for legionnaires. (4) Pulmonary embolism: Qualifiers: Acute cor pulmonale presence: without acute cor pulmonale Chronicity: acute Pulmonary embolism type: unspecified Qualified Code(s): I26.99 - Other pulmonary embolism without acute cor pulmonale Code(s): I26.99 - Other pulmonary embolism without acute cor pulmonale Status: Acute Assessment and Plan: Patient is receiving subcu Lovenox and also has a DVT. In the right leg. (5) Essential (primary) hypertension: Code(s): I10 - Essential (primary) hypertension Status: Chronic Assessment and Plan: Medications a looks like the patient had been on lisinopril. Patient's blood pressure is soft. Hold any blood pressure medicine at this time. (6) BPH (benign prostatic hyperplasia): Code(s): N40.0 - Benign prostatic hyperplasia without lower urinary tract symptoms Status: Chronic Assessment and Plan: Oneal catheter. The patient has a history of having prostate cancer with a prostatectomy. Subjective Date/time seen: 06/30/20 14:51 Patient is 74 year old male was found unresponsive at home and desaturating he was brought to the emergency department and was emergently intubated, CT scan of the chest showed bilateral pulmonary emboli and patient is anticoagulated with Lovenox patient is also positive for COVID-19 and being treated with dexamethasone and Remdesivir, patient currently on vent and unfortunately unable to provide any review of symptoms or history, patient is seen by printed circuit board panels developer there was a problem with ET and it is corrected now. Patient has been on vent for 5 days now, Patient has been placed on prone position, patient will complete 5 days course Remdesivir today will continue dexamethasone 11/26 patient is seen by printed circuit board panels developer and appreciate Review of Systems Review of Systems: ROS unobtainable: Y
[2020-06-30 17:19] LABS: Glucose Point of Care 152 (65-105)
[2020-06-30] MEDS: PROPOFOL IV EMULSION 100 ML 15.37 MG IV CONT (19:59)
[2020-06-30] MEDS: FENTANYL 2,500MCG/NS250ML(*CRX 2,500 MCG/250 ML BAG IV CONT (20:01)
[2020-07-01] VITALS (32 sets, daily range): BP systolic 98–139; BP diastolic 63–76; PULSE 70–133; RESP 20–36; TEMP 36.2–38.2; O2SAT 84–98
[2020-07-01 00:24] LABS: Glucose Point of Care 96 (65-105)
[2020-07-01] MEDS: PROPOFOL IV EMULSION 100 ML 13.97 MG IV CONT ×2 (03:53→08:07)
[2020-07-01 04:17] LABS: Alveolar/Arterial O2 Gradient 154.5 mmHg; Base Excess ABG 3.9 mEq/l (+/-2.0); Carboxyhemoglobin 0.3 % THb (0-2.0); Fractional Inspired Oxygen 35 %; HCO3 ABG 26.5 mEq/l (22.0-26.0); Methemoglobin ABG 0.3 %THb (0-1.5); Oxygen Content ABG 19.5 %vol (16.0-22.0); Oxygen Saturation ABG 91.8 % (95.0-100.0); Oxyhemoglobin 88.9 % THb (90.0-100.0); PO2 ABG 55.5 mmHg (80.0-100.0); PO2 FiO2 Ratio Arterial Blood 1.59 %; Reduced Hemoglobin 10.5 %THb (0-5.0); Total Hemoglobin 15.6 g/dL (12.0-18.0); pH ABG 7.509 (7.350-7.450)
[2020-07-01 04:18] LABS: Device VENTILATOR; Modified Allen's Test Unable to perform; Site Drawn LEFT RADIAL
[2020-07-01 04:19] LABS: Arterial Blood Gas Vent Mode CMV; Arterial Blood Gas Ventilator rate 20 /MIN
[2020-07-01 04:20] LABS: Arterial Blood Gas PEEP 10 cmH2O; Arterial Blood Gas Tidal Volume 450 ml
[2020-07-01] MEDS: CENTRAL LINE FLUSH 10 ML IV PUSH ×3 (04:59→21:41)
[2020-07-01 05:11] LABS: Hemoglobin 15.2 g/dL (14.0-18.0); Mean Corpuscular Hemoglobin 33.5 pg (26-34); Mean Corpuscular Volume 101.3 fl (80-100); Mean Platelet Volume 10.3 fl (7.4-10.4); Platelet Count Result 336 k/mm3 (150-375); Red Blood Count 4.54 M/mm3 (4.6-6.20); Red Cell Distribution Width 13.2 % (11.5-14.5); White Blood Count 14.9 K/mm3 (4.5-10.0)
[2020-07-01 05:29] LABS: Alanine Aminotransferase 97 U/L (4-50); Albumin Level 2.7 g/dL (3.5-5.1); Alkaline Phosphatase 67 U/L (38-126); Anion Gap 2 mmol/L (8-16); Aspartate Amino Transferase 70 U/L (17-59); Bilirubin,Total 0.8 mg/dL (0.2-1.3); Blood Urea Nitrogen 38 mg/dL (9-20); Carbon Dioxide 33 mmol/L (22-30); Chloride 104 mmol/L (98-107); Estimated CRCL calculation 92 ml/min; Estimated Glomerular Filt Rate > 60; Glucose 126 mg/dL (75-110); Magnesium 2.6 mg/dL (1.6-2.3); Potassium 4.1 mmol/L (3.4-5.0); Sodium 139 mmol/L (137-145)
[2020-07-01] MEDS: ASPIRIN 325 MG TABLET PO (08:07)
[2020-07-01] MEDS: DEXAMETHASONE 2 MG TABLET 6 MG PO (08:07)
[2020-07-01] MEDS: PANTOPRAZOLE SODIUM IV 40 MG VIAL IV PUSH (08:07)
[2020-07-01] MEDS: ENOXAPARIN 120 MG/0.8 ML SYRINGE 115 MG SUB-Q ×2 (08:07→23:09)
--- NOTE | 2020-07-01 09:57 | WPDINTPN ---
Progress Note: A&P Assessment and Plan (1) Acute hypoxemic respiratory failure: Code(s): J96.01 - Acute respiratory failure with hypoxia Status: Acute Assessment and Plan: Multifactorial -bilateral PE, pneumonia versus COVID-19, congestive heart failure ABG and CT reviewed 06/26-ET tube was exchanged due to cuff leak and curling up in his pharynx. 06/26 -06/30 -daily overnight prone positioning 06/30 FiO2 is at 30% I have to decreased the PEEP to 10. This patient has been having several skin damage areas from prone and oxygenation has improved. Will continue supine ventilation at this time as long as tolerated. 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 Patient has been feeling sick for few days but he did not get himself checked. She also has not get gotten herself checked and I have encouraged her to get tested and isolate herself. Patient is in Airborne, Droplet and Contact Isolation Continue dexamethasone 04/25 Completed course of Remdesivir started 04/26 Monitor inflammatory markers which are improving (3) Sepsis: Code(s): A41.9 - Sepsis, unspecified organism Status: Acute Assessment and Plan: Secondary to pneumonia versus sinusitis Blood pressure adequate IV fluids discontinued due to congestive heart failure and COVID-19 Blood sputum, culture sent and negative till now Completed course of empiric Levaquin for community-acquired pneumonia. (4) Pneumonia: Qualifiers: Laterality: unspecified laterality Lung location: unspecified part of lung Pneumonia type: due to unspecified organism Qualified Code(s): J18.9 - Pneumonia, unspecified organism Code(s): J18.9 - Pneumonia, unspecified organism Status: Acute Assessment and Plan: Complete course of empiric bacterial coverage Levaquin as patient is allergic to cephalexin. Blood and sputum culture negative Urine Legionella and strep antigen is negative (5) Pulmonary embolism: Qualifiers: Acute cor pulmonale presence: without acute cor pulmonale Chronicity: acute Pulmonary embolism type: unspecified Qualified Code(s): I26.99 - Other pulmonary embolism without acute cor pulmonale Code(s): I26.99 - Other pulmonary embolism without acute cor pulmonale Status: Acute Assessment and Plan: Subcutaneous Lovenox mg per kg q.12 hours venous Dopplers of lower extremities showed DVT in right leg Echocardiogram reviewed BNP was elevated but improved Serial troponins were mildly elevated (6) Encephalopathy acute: Code(s): G93.40 - Encephalopathy, unspecified Status: Acute Assessment and Plan: Head CT in ED IMPRESSION: 1. Normal brain. No acute intracranial process. 2. Layering fluid in the right maxillary sinus. Correlate clinically for acute sinusitis. Patient was following commands and moving all 4 extremities. Currently sedated with propofol (7) Hyperglycemia: Code(s): R73.9 - Hyperglycemia, unspecified Status: Acute Assessment and Plan: Sliding scale insulin (8) Sinusitis: Code(s): J32.9 - Chronic sinusitis, unspecified Status: Acute Assessment and Plan: Seen on head CT. Patient currently on Levaquin (9) NSTEMI (non-ST elevated myocardial infarction): Code(s): I21.4 - Non-ST elevation (NSTEMI) myocardial infarction Status: Acute Assessment and Plan: Mild elevation of troponin likely secondary to PE and respiratory failure Serial troponin review echocardiogram reviewed
--- NOTE | 2020-07-01 12:47 | PM.CNGS ---
Assessment and Plan Assessment and plan (1) Bilateral pneumothorax: Code(s): J93.9 - Pneumothorax, unspecified Status: Acute Assessment and Plan: Emergent bilateral chest tubes were placed at the bedside in the ICU. Postprocedure chest x-rays are pending. Oxygen saturations were noted to go up to 95% after right chest tube was placed. (2) Pneumomediastinum: Code(s): J98.2 - Interstitial emphysema Status: Acute (3) Pneumonia due to COVID-19 virus: Code(s): U07.1 - COVID-19; J12.89 - Other viral pneumonia Status: Acute (4) Pulmonary embolism: Qualifiers: Acute cor pulmonale presence: without acute cor pulmonale Chronicity: acute Pulmonary embolism type: unspecified Qualified Code(s): I26.99 - Other pulmonary embolism without acute cor pulmonale Code(s): I26.99 - Other pulmonary embolism without acute cor pulmonale Status: Acute History of Present Illness Consult details Consult date: 07/01/20 Requesting physician: Destin Lam MD Narrative: This is a 74-year-old man whom I am asked to see urgently for bilateral pneumothorax. He is currently intubated in the ICU and positive for COVID. He also has bilateral pulmonary emboli and is on anticoagulation. History is briefly obtained from the chart. He presented to the emergency department on 06/25 via EMS for acute respiratory failure. He was intubated on 06/25. He had been stable on the ventilator but acutely decompensated this morning. Chest x-ray right around noon today showed large right pneumothorax and small left pneumothorax as well as pneumomediastinum. At the time that I arrived in the room, his oxygen saturations were around 85% with him being bag ventilated. An anterior decompressing catheter was placed by the sap director. Review of Systems Review of Systems: ROS unobtainable: Yes unobtainable due to endotracheal tube, unobtainable due to medical condition and unobtainable due to mental status PMFSH Past Medical History Medical History BPH (benign prostatic hyperplasia) Essential (primary) hypertension Prostate cancer Surgical History Surgical History H/O prostatectomy Robotic assisted radical retropubic prostatectomy and bilateral pelvic lymphadenectomy February of 2017 Family History Family History Mother Family history of chronic obstructive pulmonary disease Patient's mother is Father Family history of chronic obstructive pulmonary disease Social History Social History Social History: The patient is recent medical records showed that he denied any significant ongoing smoking or alcohol. 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 Smoking status: Never smoker Second hand tobacco smoke exposure: No Alcohol intake: never Substance use: never Spiritual care concerns: No Meds Home Medications and Allergies Home Medications Medication Instructions Recorded Confirmed Type desloratadine 5 mg tablet 5 mg PO DAILY #90 tablet 06/10/19 06/25/20 Rx acetaminophen 500 mg tablet 500 mg PO Q6H PRN 09/20/19 02/28/20 History esomeprazole magnesium 40 mg 40 mg PO DAILY 09/20/19 06/25/20 History capsule,delayed release fluticasone propionate 50 2 spray NASAL DAILY 09/20/19 03/28/20 History mcg/actuation nasal spray,suspension lisinopril 20 mg tablet 20 mg PO DAILY #90 tablet 09/20/19 06/25/20 Rx gfowstxe-kif-dfqro acid 300 1 tablet PO DAILY 09/20/19 03/28/20 History mcg-lycopene 600 mcg-lutein 300 mcg tablet mecobalamin (vitamin B12) 1,000 1,000 mcg PO DAILY 02/20/20 03/28/20 History mcg chewable tablet loratadine 10 mg tablet 10 mg PO DAILY 0
--- NOTE | 2020-07-01 12:55 | PM.PROC ---
Procedure Note - Detailed Date of procedure: 07/01/20 Pre-op diagnosis: Bilateral pneumothorax, COVID-19 Pneumonia Post-op diagnosis: same Procedure performed: Bilateral thoracostomy tube placement Description of procedure: Patient was placed in supine position in hospital bed. His right chest area was prepped and draped in sterile fashion using chlorhexidine prep. A 2 cm incision was made using a 15 blade scalpel in the right anterior axillary line. Careful blunt dissection was carried out down to the 6th rib. A curved hemostat was then used to bluntly dissect directly over the 6th rib and into the 5th intercostal space. Then bluntly entered into the intercostal space and through the pleura into the pleural cavity. A gush of air was released. A 32 [place]ian chest tube was then advanced straight medially. The chest tube was sutured in place using 0 silk suture. Vaseline gauze was then applied at the insertion site, followed by 4 x 4 gauze and silk tape. The chest tube was applied to -20 cm of water suction. His left chest area was prepped and draped in sterile fashion using chlorhexidine prep. A 2 cm incision was made using a 15 blade scalpel in the left anterior axillary line. Careful blunt dissection was carried out down to the 6th rib. A curved hemostat was then used to bluntly dissect directly over the 6th rib and into the 5th intercostal space. Then bluntly entered into the intercostal space and through the pleura into the pleural cavity. A gush of air was released. A 28 [place]itanian chest tube was then advanced cephalad and anteriorly. The chest tube was sutured in place using 0 silk suture. Vaseline gauze was then applied at the insertion site, followed by 4 x 4 gauze and silk tape. The chest tube was applied to -20 cm of water suction.The patient was then sat up in bed and chest x-ray was ordered to confirm placement. Surgeon: Salty Anaya DO Estimated blood loss (mL): 5 Drains: Yes ( 32 Mauritanian chest tube on right and 28 Fr chest tube on left) Complications: No immediate complications Condition: critical Disposition: ICU Findings: Chest x-rays were briefly reviewed before procedure. Patient has a large right pneumothorax predominantly in the lower lung zone. Thirty-two Mauritanian chest tube was placed on the right and this was directed straight medially where the majority of the collapse was. Patient also has a small left pneumothorax, and chest tube was directed slightly cephalad and anterior in this location. Postprocedure chest x-rays are pending to confirm adequate re-expansion of lung. Patient's sats prior to procedure were in the 80s, and postprocedure oxygen saturations in mid 90s.
--- NOTE | 2020-07-01 13:07 | WPDPROCEDUR ---
Procedures Intubation Intubation Date: 07/01/20 Intubation Time: 12:00 Consent: Patient was already intubated and had a complication with drop in sats and difficult to back. ETT was either nancy or malposition the patient was urgently extubated bagged with Ambu bag and re-intubation. A pre-procedural Time-Out was completed immediately before starting the procedure and confirmed: Patient Identification, Site, Procedure, Patient Position and the Availability of Requisite Equipment: Yes Sedative: none Laryngoscope: fiber optic video scope Assist device used: fiber optic device ET tube size: 7.5 Tube secured depth (cm): 27 Tube secured location: lips Tube placement confirmation: visualized tube passing through cords, equal breath sounds bilaterally, no breath sounds over epigastrium and confirmation by capnometry Patient tolerated procedure: other Intubation complications: hypoxia Additional comments: See my other note for all the details regarding this procedure
--- NOTE | 2020-07-01 13:09 | P.PCNBED_ITS ---
Procedures Chest Tube Chest Tube 1: Chest tube location: Anterior Chest Tube Type: cook cath Chest tube procedure: Yes betadine prep Incision made with: other Flores of air heard: No Tube Drainage: none Post procedure: connected to Pluero Vac Post procedure CXR?: Yes Post Procedure: post CXR reviewed and pneumo persistent Patient tolerated procedure: Yes Complications: tube not draining and placement outside of thoracic cavity Progress: Patient appeared to have a tension pneumothorax and was deteriorating. I try to place a pneumo thorax catheter in anterior chest. The pneumothorax kit available in our cart is not the 1 I have used in the past and needle has no test med to the syringe to guide placement with air bubbles. The needle has a catheter on and I advanced the needle with a catheter after making a small stab incision in mid clavicle line in 2nd intercostal. As patient is morbidly obese I was able to advance the needle without any difficulty and once it appeared the needle was in pleural cavity after I felt a give. I advanced the catheter over the needle into the pleural cavity. Catheter advanced without any difficulty. Chest x-ray was reviewed and appeared that the catheter was extrapleural and not in the right place. Pneumothorax was persistent. I called general surgeon for large bore chest tube placed. Also prepared to place a small bore chest tube in the mid axillary line by using at [employer] [address] [place] [address] Anaya arrived at bedside placed open dissection large-bore chest tubes on both sides for bilateral pneumothorax.
[2020-07-01 13:19] LABS: Alveolar/Arterial O2 Gradient 470.7 mmHg; Base Excess ABG 0.9 mEq/l (+/-2.0); Carboxyhemoglobin 0.4 % THb (0-2.0); Fractional Inspired Oxygen 100 %; HCO3 ABG 27.6 mEq/l (22.0-26.0); Methemoglobin ABG 0.5 %THb (0-1.5); Oxygen Content ABG 22.2 %vol (16.0-22.0); Oxygen Saturation ABG 99.2 % (95.0-100.0); Oxyhemoglobin 97.8 % THb (90.0-100.0); PCO2 ABG 51.9 mmHg (35.0-45.0); PO2 ABG 190.4 mmHg (80.0-100.0); Reduced Hemoglobin 1.3 %THb (0-5.0); Total Hemoglobin 15.9 g/dL (12.0-18.0); pH ABG 7.344 (7.350-7.450)
[2020-07-01 13:20] LABS: Arterial Blood Gas PEEP 12 cmH2O; Arterial Blood Gas Tidal Volume 400 ml; Arterial Blood Gas Vent Mode CMV; Arterial Blood Gas Ventilator rate 18 /MIN; Device VENTILATOR; Modified Allen's Test Pass; Site Drawn RIGHT RADIAL
--- NOTE | 2020-07-01 13:25 | PC.NURSE ---
resp. therapists in room, suddenly pt's sats dropped, therapist started bagging pt then was unable to bag, Dr. Lam came to room, extubated and re-intubated, abdomen swelled up, new ogt placed, x-ray here and took several x-rays, pneumo seen on right side, Dr. Lam attempted a drain in right upper chest, and surgery called, Dr. Anaya came to room, place chest tubes in right and left chest, x-ray done again and [facility] doctors viewed x-ray
[2020-07-01] MEDS: ROCURONIUM BROMIDE 50 MG/5 ML VIAL (13:42)
--- NOTE | 2020-07-01 13:49 | P.PNCROSS_ITS ---
Event Note Event Note Event Note: Early this morning patient was on 35% FiO2 and 10 of PEEP. I was emergently called to the room as patient desaturate and sats were in 50. RT told me that she was having difficulty bag ventilating the patient. I could not hear good breath sounds on either side. And is patient's abdomen was distended and firm. Patient earlier had developed skin breakdown his face from prone positioning tube frazier hence ET tube was secured with tape to allow healing of that area. I suspected that patient's tube had dislodged as earlier patient ETT was coiled in back of his mouth when it was exchanged few days. I extubated the patient and we bagged him with a PEEP valve face mask. ETT was full of secretions. Patient was emergently reintubated for with glide scope. Large amount of secretions was seen in the back of throat which were suctioned out. Once patient was intubated we had good breath sounds bilateral. ETT was confirmed with direct view, capnometry and equal breath sounds. OG tube was placed emergently and hooked up to suction and tube feeds were suctioned. Chest x-ray was ordered emergently. I check chest x-ray in ED tube looked in the right position but patient had a right large pneumothorax. Although patient was much easier to bag now his saturation remained low. I was suspecting patient has tension pneumothorax. Emergently in pneumothorax catheter was placed. Like open we have has a needle which does not attached to a syringe to allow guiding with air bubbles. I inserted needle with pressure blindly due to emergent situation in mid clavicle line in 2nd intercostal space. Patient is also morbidly obese. Once I encountered a give, I inserted catheter over the needle without any difficulty. I hooked it up to suction but no significant air leaks. Chest x-ray was done and shows the catheter was extrapleural. I called general surgery for open dissection large-bore chest tube placement and prepared for 16 gauge chest tube placement using [employer] quick chest tube kit. Patient was bag ventilated with sats remained in high 80s. While I was preparing, Dr. Anaya arrived at bedside and placed large bore chest tubes 1st on right and then on left. His saturation improved to 90. Patient had early did change to FiO2 of 100%. Peep was decreased back to 12 which was earlier change to 15. Patient remained hemodynamically stable and did not require CPR or lost his pulse. Patient will be sent to CT once stable for better evaluation. Pneumothorax catheter was removed out any complication. It seems the patient either had ETT blockage by secretions or ET tube dislodgement leading to desaturations and being difficult to bag ventilate and later patient developing pneumothorax or this happened secondary to spontaneous pneumothorax which we later found on the chest. There is no way to know the exact etiology this time. I called patient's Ksenia to update but she did not answer the phone. I spoke to patient's daughter Huong Dumont by phone and updated her with events of this morning and patient great status. I also answered all her questions. Total critical care time spent except separately billed procedures - 60 minutes
[2020-07-01 14:13] LABS: Glucose Point of Care 205 (65-105)
[2020-07-01] MEDS: IPRATROPIUM BR 0.02% INH SOLN 0.5 MG/2.5 ML VIAL INHALATION ×2 (14:47→20:42)
[2020-07-01] MEDS: ALBUTEROL SULFATE NEB 2.5 MG/0.5 ML INH INHALATION ×2 (14:47→20:42)
[2020-07-01] MEDS: PROPOFOL IV EMULSION 100 ML 34.92 MG IV CONT (15:04)
--- NOTE | 2020-07-01 16:10 | PM.IMPN ---
Progress Note: A&P Assessment and Plan (1) Acute hypoxemic respiratory failure: Code(s): J96.01 - Acute respiratory failure with hypoxia Status: Acute Assessment and Plan: The patient has bilateral acute pulmonary emboli. He is on subcu Lovenox. He is being checked for For COVID-19. Patient was started on Decadron. Patient is also being treated for pneumonia with Levaquin. In the intensive care unit under the care of the heavy duty diesel mechanic and is on a ventilator. Vent settings per heavy duty diesel mechanic. Initial pH was 7.305 is now 7.413. PO2 was noted to be 28.1 now 85.3. 07/01/20 16:10 Patient is 74 year old male was found unresponsive at home and desaturating he was brought to the emergency department and was emergently intubated, CT scan of the chest showed bilateral pulmonary emboli and patient is anticoagulated with Lovenox patient is also positive for COVID-19 and being treated with dexamethasone and Remdesivir, patient currently on vent and unfortunately unable to provide any review of symptoms or history, patient is seen by heavy duty diesel mechanic there was a problem with ET and it is corrected now. Patient has been on vent for 5 days now, Patient has been placed on prone position, patient completed 5 days course Remdesiviron 06/30 continued dexamethasone 12/27, today 07/01 while on the vent patient decompensated chest x-ray showed bilateral pneumothorax initially heavy duty diesel mechanic placed anterior decompressing catheter, patient was desaturating 85% and was bag ventilated, general surgeon was called and emergently and chest tubes were placed, patient is found to be in clinically stable on vent. (2) Suspected COVID-19 virus infection: Code(s): Z20.828 - Contact with and (suspected) exposure to other viral communicable diseases Status: Acute Assessment and Plan: The patient was started on Decadron and he is in isolation. (3) Pneumonia: Qualifiers: Laterality: unspecified laterality Lung location: unspecified part of lung Pneumonia type: due to unspecified organism Qualified Code(s): J18.9 - Pneumonia, unspecified organism Code(s): J18.9 - Pneumonia, unspecified organism Status: Acute Assessment and Plan: Patient was started on Levaquin and blood cultures are pending. Patient received 1 L bolus and is now on IV fluids. Sputum cultures. Urine being checked for legionnaires. (4) Pulmonary embolism: Qualifiers: Acute cor pulmonale presence: without acute cor pulmonale Chronicity: acute Pulmonary embolism type: unspecified Qualified Code(s): I26.99 - Other pulmonary embolism without acute cor pulmonale Code(s): I26.99 - Other pulmonary embolism without acute cor pulmonale Status: Acute Assessment and Plan: Patient is receiving subcu Lovenox and also has a DVT. In the right leg. (5) Essential (primary) hypertension: Code(s): I10 - Essential (primary) hypertension Status: Chronic Assessment and Plan: Medications a looks like the patient had been on lisinopril. Patient's blood pressure is soft. Hold any blood pressure medicine at this time. (6) BPH (benign prostatic hyperplasia): Code(s): N40.0 - Benign prostatic hyperplasia without lower urinary tract symptoms Status: Chronic Assessment and Plan: Oneal catheter. The patient has a history of having prostate cancer with a prostatectomy. Subjective Date/time seen: 07/01/20 16:10 Patient is 74 year old male was found unresponsive at home and desaturating he was brought to the emergency department and was emergently intubated, CT scan of the chest showed bilateral pulmonary emboli and patient is anticoagulated with Lovenox patient is also positive for COVID-19 and being treated with dexamethasone and Remdesivir, patient currently on vent and unfortunately unable to provide any review of symptoms or history, patient is seen by heavy duty diesel mechanic there was a problem with ET and it is corrected
[2020-07-01 17:44] LABS: Glucose Point of Care 195 (65-105)
[2020-07-01] MEDS: PROPOFOL IV EMULSION 100 ML 20.95 MG IV CONT (18:16)
--- NOTE | 2020-07-01 18:52 | PC.NURSE ---
notified pt's family and Dr. Lam of ct scan results via phone
[2020-07-01] MEDS: DORNASE ALFA INH SOLN 1 MG/ML 2.5 ML AMP 2.5 MG INHALATION (20:42)
[2020-07-01 21:38] LABS: Mean Platelet Volume 10.3 fl (7.4-10.4); Platelet Count Result 448 k/mm3 (150-375)
[2020-07-01 21:52] LABS: INR 1.2; Prothrombin Time 15.5 Seconds (11.1-14.7)
[2020-07-01 21:53] LABS: Partial Thromboplastin Time 22.1 SECONDS (22.3-36.8)
[2020-07-01 21:54] LABS: Magnesium 2.8 mg/dL (1.6-2.3)
[2020-07-01 21:55] LABS: D Dimer 2.26 ug/mL (<0.48)
[2020-07-01 22:21] LABS: Fibrinogen 456 mg/dl (215-510)
[2020-07-01] MEDS: PROPOFOL IV EMULSION 100 ML 31.43 MG IV CONT (23:07)
[2020-07-02] VITALS (26 sets, daily range): BP systolic 69–125; BP diastolic 49–79; PULSE 111–140; RESP 25–40; TEMP 38.2–38.8; O2SAT 95–98
[2020-07-02 00:14] LABS: Glucose Point of Care 162 (65-105)
[2020-07-02] MEDS: PROPOFOL IV EMULSION 100 ML 34.92 MG IV CONT (01:45)
[2020-07-02] MEDS: IPRATROPIUM BR 0.02% INH SOLN 0.5 MG/2.5 ML VIAL INHALATION ×2 (02:27→08:13)
[2020-07-02] MEDS: ALBUTEROL SULFATE NEB 2.5 MG/0.5 ML INH INHALATION ×2 (02:27→08:12)
[2020-07-02] MEDS: LORazepam INJ (*CRX) 2 MG/ML VIAL IV PUSH (02:44)
[2020-07-02] MEDS: SODIUM CHLORIDE 0.9% IV 500 ML IV CONT (02:44)
[2020-07-02] MEDS: NOREPINEPHRINE 8 MG/D5W 250 ML 8 MG/250 ML BAG 9.38 MG IV CONT (03:23)
[2020-07-02 03:35] LABS: Hematocrit 39.9 % (42.0-52.0); Mean Corpuscular HGB Conc 32.6 g/dl (32-36); Mean Corpuscular Hemoglobin 33.8 pg (26-34); Mean Corpuscular Volume 103.6 fl (80-100); Mean Platelet Volume 10.6 fl (7.4-10.4); Platelet Count Result 484 k/mm3 (150-375); Red Blood Count 3.85 M/mm3 (4.6-6.20); Red Cell Distribution Width 13.1 % (11.5-14.5); White Blood Count 31.1 K/mm3 (4.5-10.0)
[2020-07-02] MEDS: PROPOFOL IV EMULSION 100 ML 27.94 MG IV CONT (04:17)
[2020-07-02 04:39] LABS: Alanine Aminotransferase 67 U/L (4-50); Albumin Level 2.6 g/dL (3.5-5.1); Alkaline Phosphatase 56 U/L (38-126); Anion Gap 6 mmol/L (8-16); Aspartate Amino Transferase 49 U/L (17-59); Bilirubin,Total 0.9 mg/dL (0.2-1.3); Blood Urea Nitrogen 50 mg/dL (9-20); Calcium 7.5 mg/dL (8.4-10.2); Carbon Dioxide 28 mmol/L (22-30); Chloride 104 mmol/L (98-107); Estimated CRCL calculation 54 ml/min; Estimated Glomerular Filt Rate 50; Glucose 200 mg/dL (75-110); Lactate Dehydrogenase 620 U/L (313-618); Magnesium 2.9 mg/dL (1.6-2.3); Potassium 5.5 mmol/L (3.4-5.0); Sodium 138 mmol/L (137-145)
[2020-07-02 04:42] LABS: Alveolar/Arterial O2 Gradient 399.4 mmHg; Carboxyhemoglobin 0.3 % THb (0-2.0); Fractional Inspired Oxygen 75 %; HCO3 ABG 20.4 mEq/l (22.0-26.0); Methemoglobin ABG 0.3 %THb (0-1.5); Oxygen Content ABG 19.3 %vol (16.0-22.0); Oxygen Saturation ABG 96.8 % (95.0-100.0); Oxyhemoglobin 95.4 % THb (90.0-100.0); PCO2 ABG 39.1 mmHg (35.0-45.0); PO2 ABG 93.8 mmHg (80.0-100.0); PO2 FiO2 Ratio Arterial Blood 1.25 %; Total Hemoglobin 14.3 g/dL (12.0-18.0); pH ABG 7.335 (7.350-7.450)
[2020-07-02 04:43] LABS: Arterial Blood Gas PEEP 12 cmH2O; Arterial Blood Gas Tidal Volume 400 ml; Arterial Blood Gas Vent Mode CMV; Arterial Blood Gas Ventilator rate 24 /MIN; Device VENTILATOR; Modified Allen's Test Unable to perform; Site Drawn LEFT RADIAL
[2020-07-02] MEDS: SODIUM CHLORIDE 0.9% IV 1,000 ML 999 ML IV CONT (04:58)
[2020-07-02] MEDS: SODIUM BICARBONATE 8.4% 50 MEQ/50 ML SYRINGE 100 MEQ IV PUSH (04:59)
--- NOTE | 2020-07-02 05:00 | PC.NURSE ---
CALLED AND UPDATED AND DAUGHTER DUE TO PATIENT'S CHANGE IN VITALS AND NEED FOR VASOPRESSORS. fAMILY STILL WANTS PATIENT TO BE A FULL CODE AT THIS TIME.
[2020-07-02] MEDS: VASOPRESSIN INJ 100 UNITS in DEXTROSE 5% 95 ML IV CONT (05:06)
[2020-07-02] MEDS: CENTRAL LINE FLUSH 10 ML IV PUSH (05:51)
[2020-07-02] MEDS: INSULIN ASPART (*BKC) 100 UNITS/ML SUB-Q (05:54)
[2020-07-02 06:09] LABS: Glucose Point of Care 219 (65-105)
[2020-07-02] MEDS: NOREPINEPHRINE 8 MG/D5W 250 ML 8 MG/250 ML BAG 56.25 MG IV CONT (07:41)
[2020-07-02] MEDS: DORNASE ALFA INH SOLN 1 MG/ML 2.5 ML AMP 2.5 MG INHALATION (08:13)
[2020-07-02 08:28] LABS: Arterial Blood Gas PEEP 12 cmH2O
[2020-07-02 08:41] LABS: Add Urine Microscopic? YES; Appearance Urine Cloudy (Clear); Bacteria Urine Trace /hpf; Bilirubin Urine Negative (Negative); Glucose Urine UA Negative (Negative); Ketones Urine Negative (Negative); Leukocyte Esterase Ur Negative LEU/UL (Negative); Mucus Urine Rare /lpf; Nitrate Urine Negative (Negative); Protein Urine 1+ mg/dL (Negative); Specific Grav Ur 1.026 (1.001-1.035); Squamous Epithelial Cell Urine Rare /hpf (Few)
[2020-07-02 08:43] LABS: Blood Urine Negative (Negative); Color Urine Yellow (Yellow)
[2020-07-02 08:53] LABS: CRP 15.5 mg/dL (<1.0)
--- NOTE | 2020-07-02 12:45 | WPDINTPN ---
Progress Note: A&P Assessment and Plan (1) Cardiac arrest: Code(s): I46.9 - Cardiac arrest, cause unspecified Status: Acute Assessment and Plan: Patient with V fib arrest early this morning, ACLS protocol was instituted for 30 minutes prior to calling of the code -patient initially was in ventricular fibrillation, patient was also defibrillated x1. -see code sheet for the information -patient was on multiple vasopressors (2) Acute hypoxemic respiratory failure: Code(s): J96.01 - Acute respiratory failure with hypoxia Status: Acute Assessment and Plan: Multifactorial -bilateral PE, pneumonia versus COVID-19, congestive heart failure ABG and CT reviewed 06/26-ET tube was exchanged due to cuff leak and curling up in his pharynx. 06/26 -06/30 -daily overnight prone positioning 06/30 FiO2 is at 30% I have to decreased the PEEP to 10. This patient has been having several skin damage areas from prone and oxygenation has improved. Will continue supine ventilation at this time as long as tolerated. Tube frazier has been changed to regular tape BP is down to 10 and FiO2 is at 35% 07/01: Patient was hypoxic in the 50s, ETT was exchanged, patient remained hypoxic, chest x-ray showed bilateral pneumothoraces along with pneumomediastinum. Status post bilateral chest tube placement and needle decompression of the pneumothorax. 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 Patient has been feeling sick for few days but he did not get himself checked. She also has not get gotten herself checked and I have encouraged her to get tested and isolate herself. Patient is in Airborne, Droplet and Contact Isolation Continue dexamethasone 04/25 Completed course of Remdesivir started 04/26 Monitor inflammatory markers which are improving (4) Sepsis: Code(s): A41.9 - Sepsis, unspecified organism Status: Acute Assessment and Plan: Secondary to pneumonia versus sinusitis Blood pressure adequate IV fluids discontinued due to congestive heart failure and COVID-19 Blood sputum, culture sent and negative till now Completed course of empiric Levaquin for community-acquired pneumonia. (5) Pneumonia: Qualifiers: Laterality: unspecified laterality Lung location: unspecified part of lung Pneumonia type: due to unspecified organism Qualified Code(s): J18.9 - Pneumonia, unspecified organism Code(s): J18.9 - Pneumonia, unspecified organism Status: Acute Assessment and Plan: Complete course of empiric bacterial coverage Levaquin as patient is allergic to cephalexin. Blood and sputum culture negative Urine Legionella and strep antigen is negative (6) Pulmonary embolism: Qualifiers: Acute cor pulmonale presence: without acute cor pulmonale Chronicity: acute Pulmonary embolism type: unspecified Qualified Code(s): I26.99 - Other pulmonary embolism without acute cor pulmonale Code(s): I26.99 - Other pulmonary embolism without acute cor pulmonale Status: Acute Assessment and Plan: Subcutaneous Lovenox mg per kg q.12 hours venous Dopplers of lower extremities showed DVT in right leg Echocardiogram reviewed BNP was elevated but improved Serial troponins were mildly elevated (7) Encephalopathy acute: Code(s): G93.40 - Encephalopathy, unspecified Status: Acute Assessment and Plan: Head CT in ED IMPRESSION: 1. Normal brain. No acute intracranial process. 2. Layering fluid in the right maxillary sinus. Correlate clinically for acute sinusitis. Patient was following c
--- NOTE | 2020-07-02 13:01 | PDCODEBLUE ---
Code Blue Note Code Blue Note Time Arrived at Code Blue: 09 Initial Rhythm on Arrival: VFib Airway Management: Pt being bagged on arrival Chest Compressions: In process on arrival to bedside Result of Code Blue: Pt Cardiac Rhythm Post Code: Asystole Code Blue Summary: Referred to code blue sheet
--- NOTE | 2020-07-02 14:14 | PM.DDS ---
Discharge Sum: Prov Provider Primary care physician: Jose Carvalho DO Admitting provider: Shayy Suazo MD Consults: 06/25/20 11:17 Consult to Physician Routine Comment: Consulting Provider: Destin Lam Reason for consultation: ICU MANAGEMENT Has provider been notified: Yes Discharge Sum: Summary Date and Time Date of admission: 06/25/20 11:16 Date of : 07/02/20 Time of : 08:48 Summary Details: Patient is 74 year old male was found unresponsive at home and desaturating he was brought to the emergency department and was emergently intubated, CT scan of the chest showed bilateral pulmonary emboli and patient is anticoagulated with Lovenox patient is also positive for COVID-19 and being treated with dexamethasone and Remdesivir, patient currently on vent and unfortunately unable to provide any review of symptoms or history, patient is seen by geophysical party chief there was a problem with ET and it is corrected now. Patient has been on vent for 5 days now, Patient has been placed on prone position, patient completed 5 days course Remdesiviron 06/30 continued dexamethasone 12/27, today 07/01 while on the vent patient decompensated chest x-ray showed bilateral pneumothorax initially geophysical party chief placed anterior decompressing catheter, patient was desaturating 85% and was bag ventilated, general surgeon was called and emergently and chest tubes were placed, patient is found to be in clinically stable on vent. however patient on 07/02/2020 at 8:48 Additional Data Confirmation of as documented by pronouncing clinician: no pulse, no respirations, no heart sounds and pupils fixed and dilated Family: not available Attending/PCP notified?: Yes Attending physician: Shayy Suazo MD Was code activated?: No Autopsy requested?: No gas examiner notified?: Yes Organ bank notified?: Yes Advance directives: No Hospice patient?: No
== END 2020-07-02 08:48 | disposition expired | DRG 870 ==
LOC: ANHED 11:04 → ANHICU 11:33
PROVIDERS: Emergency Medicine; Internal Medicine; Nurse Practitioner; Admitting Provider Family Medicine; Emergency Provider Emergency Medicine; PCP Internal Medicine; Visit Provider Family Medicine
DX: A41.89 Other specified sepsis (principal); J96.01 Acute respiratory failure with hypoxia; I26.99 Other pulmonary embolism without acute cor pulmonale; U07.1 COVID-19; J12.89 Other viral pneumonia; R65.21 Severe sepsis with septic shock; I21.4 Non-ST elevation (NSTEMI) myocardial infarction; G93.40 Encephalopathy, unspecified; T85.638A Leakage of other specified internal prosthetic devices, implants and grafts, initial encounter; J93.9 Pneumothorax, unspecified; J98.2 Interstitial emphysema; I49.01 Ventricular fibrillation; I46.2 Cardiac arrest due to underlying cardiac condition; I11.0 Hypertensive heart disease with heart failure; I50.9 Heart failure, unspecified; J32.9 Chronic sinusitis, unspecified; R73.9 Hyperglycemia, unspecified; N40.0 Benign prostatic hyperplasia without lower urinary tract symptoms; Z85.46 Personal history of malignant neoplasm of prostate; Z79.899 Other long term (current) drug therapy; Z88.1 Allergy status to other antibiotic agents
CPT/HCPCS: 31500; 36415; 36569; 36600; 51702; 70450; 71045; 71250; 71275; 74018; 74177; 80053; 81001; 82375; 82728; 82805; 83050; 83605; 83615; 83735; 83880; 84460; 84478; 84484; 85025; 85027; 85049; 85380; 85384; 85610; 85730; 86140; 87040; 87070; 87077; 87086; 87088; 87186; 87205; 87449; 87635; 87899; 92950; 93005; 93306; 93970; 94003; 94640; 96361; 96365; 96366; 96368; 96372; 96375; 99291; A9270; C1729; C1751; C9113; C9803; J0131; J0282; J0330; J1100; J1644; J1650; J1815; J1940; J1956; J2060; J2250; J2370; J2704; J3010; J3370; J7030; J7040; J7060; J7120; J8540; Q9967; U0003